=== PATIENT | male | born 1950 | race Caucasian/White ===

== ENCOUNTER 2020-06-13 15:39 | Inpatient (IN) | payer OTHER, BC ==
--- NOTE | 2020-06-13 15:52 | PDOC ---
Rapid Medical Evaluation Chief Complaint: Pain Medical Evaluation: Allergies Allergy/AdvReac Type Severity Reaction Status Date / Time No Known Allergies Allergy Verified 06/13/20 15:44 06/13/20 15:46 69 yo M h/o gastritis, DM on insulin c/o intermittent mid abdominal pain x 1 week with loss of appetite. patient is passing flatus, denies f/c/v/d, LBM 4 days ago. denies surgical history. PE: NAD speaking clearly A/P: abd pain labs, ua Discharge Disposition - Diagnosis Abdominal pain Qualifiers: Abdominal location: generalized Qualified Code(s): R10.84 - Generalized abdominal pain - Referrals - Patient Instructions - Post Discharge Activity
[2020-06-13] MEDS ORDERED: FAMOTIDINE 20 MG/50 ML IVPB 20 MG/50 ML MG IVPB ONE ×2 (16:37→16:45)
[2020-06-13] MEDS ORDERED: ACETAMINOPHEN 1000 MG/100 ML VIAL (NON FORMULARY) IVPB ONE (16:37)
[2020-06-13] MEDS ORDERED: SODIUM CHLORIDE 1,000 ML IV STA ×2 (16:38→20:02)
[2020-06-13] MEDS ORDERED: ACETAMINOPHEN INJECTION 100 ML IVPB ONE (16:45)
--- NOTE | 2020-06-13 17:15 | PDOC ---
History of Present Illness - General Chief Complaint: Pain Stated Complaint: ABD.PAIN Time Seen by Provider: 06/13/20 16:27 History Source: Patient, Family - History of Present Illness Timing/Duration: reports: constant Quality: reports: moderate Pain Radiation: reports: no radiation Past History - Medical History Allergies/Adverse Reactions: Allergies Allergy/AdvReac Type Severity Reaction Status Date / Time No Known Allergies Allergy Verified 06/13/20 15:44 Home Medications: Ambulatory Orders Glimepiride 4 mg PO 02/03/13 Glimepiride 4 mg PO DAILY #7 tablet 02/03/13 COPD: No Diabetes: Yes GI Disorders: Yes (DIVERTICULITIS) - Immunization History Immunization Up to Date: No - Psycho-Social/Smoking History Smoking Status: Yes Smoking History: Never smoked Number of Cigarettes Smoked Daily: 4 - Substance Abuse Hx (Audit-C & DAST Scrn) How often the patient has a drink containing alcohol: Never Score: In Men: 4 or > Positive; In Women: 3 or > Positive: 0 Screen Result (Pos requires Nsg. Audit-10AR): Negative Review of Systems - Review of Systems Constitutional: No: Chills, Fever Respiratory: No: Cough, Shortness of Breath Cardiac (ROS): No: Chest Pain ABD/GI: Yes: Constipated. No: Blood Streaked Bowels, Diarrhea, Nausea, Rectal Bleeding, Vomiting : No: Dysuria, Flank Pain, Hematuria *Physical Exam - Vital Signs Last Vital Signs Temp Pulse Resp BP Pulse Ox 98.7 F 85 18 137/74 98 06/13/20 15:44 06/13/20 15:44 06/13/20 15:44 06/13/20 15:44 06/13/20 15:44 - Physical Exam General Appearance: Yes: Appropriately Dressed. No: Apparent Distress HEENT: positive: Normal Voice, Other (? trace scleral icterus b/l) Neck: positive: Supple Respiratory/Chest: positive: Lungs Clear, Normal Breath Sounds. negative: Respiratory Distress Cardiovascular: positive: Regular Rate, S1, S2 Gastrointestinal/Abdominal: positive: Normal Bowel Sounds, Tender (sig ttp to epigastrium, NT to RUQ, no murpheys), Soft. negative: Distended, Guarding, Rebound Musculoskeletal: negative: CVA Tenderness Integumentary: positive: Dry, Warm Neurologic: positive: Fully Oriented, Alert, Normal Mood/Affect ED Treatment Course - LABORATORY CBC & Chemistry Diagram: 06/14/20 06:10 06/14/20 06:10 - Medications Given in the ED: ED Medications Discontinued Medications Generic Name Dose Route Start Last Admin Trade Name Mleinda PRN Reason Stop Dose Admin Acetaminophen 1,000 mg 06/13/20 16:37 06/13/20 16:55 Ofirmev Injection - IVPB 06/13/20 16:38 1,000 mg ONCE ONE Administration Famotidine/Sodium Chloride 20 mg in 50 mls @ 100 mls/hr 06/13/20 16:37 06/13/20 16:55 Pepcid 20 Mg Premixed Ivpb - IVPB 06/13/20 17:06 100 mls/hr ONCE ONE Administration Medical Decision Making - Medical Decision Making 06/13/20 17:11 69 yo M, h/o IDDM, diverticulosis, BIB daughter for ongoing epigastric pain x 1 week. Unable to describe pain but states it is severe and has been afraid to eat for the past week. Daughter says patient appears more lethargic and slow to respond now. Patient also reports constipation and has not moved his bowels in 2 days which is unusual for patient. No bright red blood per rectum, melena, dysuria, nausea, vomiting, fever or chills. Denies CP or SOB. No h/o similar pain see exam Upper abd pain ? gastritis/GERD vs bilary, less likely pancreatitis, uti/pyelo, r/o cardiac -ekg -labs -KUB given constipation -?US vs CT -GI cocktail -dispo pending 06/13/20 18:53 06/13/20 19:22 LFTs elevated, normal numbers in 2013 on records here. NA 126. Patient denies any alcohol intake but daughter told me, while alone with me, that patient does have a history of alcohol abuse and has been telling family that he currently does not drink anymore but daughter suspects that he still ingests ETOH. Patient's urine sample did appear dark in ED. Patient currently in CT. Signed out to KAYDEN Stark at this time Discharge - Discharge Information Problems reviewed: Yes Clinical Impression/Diagnosis: Transaminitis, Liver masses, Pulmonary nodule Abdominal pain Qualifiers: Abdominal location: generalized Qualified Code(s): R10.84 - Generalized abdominal pain - Follow up/Referral - Patient Discharge Instructions - Post Discharge Activity
[2020-06-13 17:25] LABS: BASO % 0.7 % (0-2.0); EOS % 0.4 % (0-4.5); HEMATOCRIT 35.2 % (35.4-49); HEMOGLOBIN 12.6 GM/dL (11.7-16.9); LYMPH % 12.3 % (8-40); MCHC 35.9 g/dl (32.0-35.9); MEAN CELL VOLUME 94.7 fl (80-96); MEAN PLT VOLUME 8.7 fl (7.5-11.1); MONO % 9.4 % (3.8-10.2); NEUT % 77.2 % (42.8-82.8); PLATELET COUNT 190 K/MM3 (134-434); RBC 3.72 M/mm3 (4.00-5.60)
--- NOTE | 2020-06-13 17:28 | CON.CARD ---
Consult Consult Specialty:: cardiology Reason for Consultation:: chest/abdominal pain; DM; cigarettes - History of Present Illness Chief Complaint: Pt A&Ox3; sitting in chair; c/o abdominal pain. His daughter, Katie, is with him. History of Present Illness: Mr. Gonzales is a 69 yr old man (b. [place]) with PMHx DM (on glucophage and insulin), current and long-term cigarettes (1/2-1 ppd for many years), HTN (?not on medications), chronic diverticulitis and distended gallblader ([address] CT), ? cholesterol levels, now brought to ER due to 1 week of substernal and abdominal pain that began about one week ago. Pt initially felt moderate central sternal burning pain up to his throat that began at rest and lasted for hours; for the last few days, it has been felt in his abdomen. He has had constipation for several days, as well as "dark urine"; decreased appetite, and weight loss, for several weeks. Pt's daughter says he has been extremely fatigued on minimal exertion for weeks, and "he just wants to lay down and sleep, like he is in slow-motion when talking, moving thinking". His appetite has diminished, and he has lost weight over the past few months, though he is unsure how much. He has been doing very little exercise for months. Denies family hx CAD/CVA. Denies alcohol. - History Source History Provided By: Patient, Family Member (daughter), Medical Record Limitations to Obtaining History: No Limitations - Past Medical History Cardio/Vascular: Yes: HTN - Smoking History Smoking history: Never smoked Aproximately how many cigarettes per day: 4 Home Medications - Allergies Allergies/Adverse Reactions: Allergies Allergy/AdvReac Type Severity Reaction Status Date / Time No Known Allergies Allergy Verified 06/13/20 15:44 - Home Medications Home Medications: Ambulatory Orders Glimepiride 4 mg PO 02/03/13 Glimepiride 4 mg PO DAILY #7 tablet 02/03/13 Review of Systems - Review of Systems Constitutional: reports: Unintentional Wgt. Loss, Weakness Eyes: reports: No Symptoms HENT: reports: No Symptoms Neck: reports: No Symptoms Cardiovascular: reports: Chest Pain Respiratory: reports: Exercise Intolerance Gastrointestinal: reports: Abdominal Pain Genitourinary: reports: Other (dark urine) Musculoskeletal: reports: Back Pain, Muscle Weakness Neurological: reports: Weakness Psychiatric: reports: Altered Sleep Pattern, Anxiety - Risk Factors Known Risk Factors: Yes: Age, Diabetes Mellitus, Gender, Hypertension, Physical Inactivity, Smoking Vital Signs: Vital Signs Temperature 98.7 F 06/13/20 15:44 Pulse Rate 85 06/13/20 15:44 Respiratory Rate 18 06/13/20 15:44 Blood Pressure 137/74 06/13/20 15:44 O2 Sat by Pulse Oximetry (%) 98 06/13/20 15:44 Constitutional: Yes: Anxious Eyes: Yes: WNL HENT: Yes: WNL Neck: Yes: WNL Respiratory: Yes: WNL Gastrointestinal: Yes: Soft, Other Renal/: No: Anuria Cardiovascular: Yes: Regular Rate and Rhythm JVD: No Carotid Bruit: No Heart Sounds: Yes: S1, S2 Murmur: Yes: Systolic Murmur, Grade 1 Musculoskeletal: Yes: Muscle Weakness Extremities: Yes: Cool Edema: No Peripheral Pulses WNL: Yes Integumentary: Yes: WNL Neurological: Yes: Alert, Oriented, Weakness Psychiatric: Yes: Alert, Oriented, Other (anxiety) - Other Data Echo: Pending Imaging - Results Chest X-ray: Image Reviewed EKG: Image Reviewed Assessment/Plan atypical chest pain abdominal pain constipation uncontrolled DM HTN cigarettes exertional fatigue "dark urine"; hyperbilirubinuria/emia hyponatremia Rec: COVID pending. Serial TNi and EKG F/u lipids, TSH, HGBA1c. Plan for ECHO (once COVID status known) for LVEF, wall motion and thickness; valve status. CXR: no acute pathology Glucose control IV fluids; f/u BUN/Cr, electrolytes, daily weight, Is and Os. F/u abdominal, GI/ evaluation; f/u CT abdomen Start lisinopril 2.5 mg daily (HTN; DM). F/u Na and K; replete as necessary; f/u with nephrology.
[2020-06-13 17:49] LABS: ALBUMIN 3.9 g/dl (3.4-5.0); ALK PHOS 162 U/L (45-117); ANION GAP 11 MMOL/L (8-16); BILIRUBIN,TOTAL 1.8 mg/dL (0.2-1); BLOOD UREA NITROGEN 13.5 mg/dL (7-18); CALCIUM 9.9 mg/dL (8.5-10.1); CHLORIDE 90 mmol/L (98-107); CO2 25 mmol/L (21-32); CREATININE 0.7 mg/dL (0.55-1.3); GLUCOSE,RANDOM 152 mg/dL (74-106); LIPASE 240 U/L (73-393); POTASSIUM 3.5 mmol/L (3.5-5.1); SGOT/AST 86 U/L (15-37); SGPT/ALT 124 U/L (13-61); SODIUM 126 mmol/L (136-145); TOT PROT 6.8 g/dl (6.4-8.2)
[2020-06-13] MEDS: LISINOPRIL 5 MG TABLET PO SCH (18:00)
[2020-06-13] MEDS ORDERED: LISINOPRIL 5 MG TABLET ONE (18:08)
[2020-06-13 19:08] LABS: PH,URINE 6.5 (5.0-8.0); URINE APPEARANCE CLEAR; URINE BILIRUBIN 1+ (NEGATIVE); URINE COLOR DK YELLOW; URINE GLUCOSE (UA) NEGATIVE (NEGATIVE); URINE KETONE TRACE (NEGATIVE); URINE LEUK ESTERASE NEGATIVE (NEGATIVE); URINE NITRITE NEGATIVE (NEGATIVE); URINE PROTEIN NEGATIVE (NEGATIVE); URINE UROBILINOGEN 4.0 E.U/dl mg/dL (0.2-1.0)
--- NOTE | 2020-06-13 19:35 | PDOC ---
*Physical Exam - Vital Signs Last Vital Signs Temp Pulse Resp BP Pulse Ox 98.7 F 85 18 137/74 98 06/13/20 15:44 06/13/20 15:44 06/13/20 15:44 06/13/20 15:44 06/13/20 15:44 ED Treatment Course - LABORATORY CBC & Chemistry Diagram: 06/13/20 16:50 06/13/20 16:50 - ADDITIONAL ORDERS Additional order review: Laboratory Results 06/13/20 06/13/20 18:00 16:50 Sodium 126 L Potassium 3.5 Chloride 90 L Carbon Dioxide 25 Anion Gap 11 BUN 13.5 Creatinine 0.7 Est GFR (CKD-EPI)AfAm 110.04 Est GFR (CKD-EPI)NonAf 94.95 Random Glucose 152 H Calcium 9.9 Total Bilirubin 1.8 H AST 86 H ALT 124 H Alkaline Phosphatase 162 H Total Protein 6.8 Albumin 3.9 Lipase 240 Urine Color Dk yellow Urine Appearance Clear Urine pH 6.5 Ur Specific [place] 1.024 Urine Protein Negative Urine Glucose (UA) Negative Urine Ketones Trace H Urine Blood Negative Urine Nitrite Negative Urine Bilirubin 1+ H Urine Urobilinogen 4.0 e.u/dl Ur Leukocyte Esterase Negative 06/13/20 16:50 RBC 3.72 L MCV 94.7 MCHC 35.9 RDW 13.0 MPV 8.7 D Neutrophils % 77.2 Lymphocytes % 12.3 D Monocytes % 9.4 D Eosinophils % 0.4 D Basophils % 0.7 D - Medications Given in the ED: ED Medications Discontinued Medications Generic Name Dose Route Start Last Admin Trade Name Freq PRN Reason Stop Dose Admin Acetaminophen 1,000 mg 06/13/20 16:37 06/13/20 16:55 Ofirmev Injection - IVPB 06/13/20 16:38 1,000 mg ONCE ONE Administration Famotidine/Sodium Chloride 20 mg in 50 mls @ 100 mls/hr 06/13/20 16:37 06/13/20 16:55 Pepcid 20 Mg Premixed Ivpb - IVPB 06/13/20 17:06 100 mls/hr ONCE ONE Administration Sodium Chloride 1,000 mls @ 1,000 mls/hr 06/13/20 16:38 06/13/20 16:55 Normal Saline - IV 06/13/20 17:37 1,000 mls/hr ASDIR STA Administration Medical Decision Making - Medical Decision Making 06/13/20 20:59 Liver mass is not shown in CT with pulmonary nodules. Concerning for metastatic disease. Abdominal ultrasound ordered to rule out acute cholecystitis Patient admitted under Dr. jordan service. Discharge - Discharge Information Problems reviewed: Yes Clinical Impression/Diagnosis: Transaminitis, Liver masses, Pulmonary nodule Abdominal pain Qualifiers: Abdominal location: generalized Qualified Code(s): R10.84 - Generalized abdominal pain - Follow up/Referral Referrals: Luis Angel Castillo MD [Primary Care Provider] - - Patient Discharge Instructions - Post Discharge Activity
--- OUTSIDE RECORDS SUMMARY | 2020-06-13 21:03 | XMS ---
:1950 Author Organization [facility] Support Name Relationship Address Phone RE, RETIRED Unavailable Unavailable Unavailable RE Unavailable Unavailable Unavailable JAGDEEP MIR [address] [facility] [phone] [place] [address] Re-disclosure Warning The records that you are about to access may contain information from federally- assisted alcohol or drug abuse programs. If such information is present, then the following federally mandated warning applies: This information has been disclosed to you from records protected by federal confidentiality rules (42 CFR part 2). The federal rules prohibit you from making any further disclosure of this information unless further disclosure is expressly permitted by the written consent of the person to whom it pertains or as otherwise permitted by 42 CFR part 2. A general authorization for the release of medical or other information is NOT sufficient for this purpose. The Federal rules restrict any use of the information to criminally investigate or prosecute any alcohol or drug abuse patient.The records that you are about to access may contain highly sensitive health information, the redisclosure of which is protected by Article 27-F of the [facility] Public Health law. If you continue you may haveaccess to information: Regarding HIV / AIDS; Provided by facilities licensed or operated by the [facility] Office of Mental Health; or Provided by the [facility] Office for People With Developmental Disabilities. If such information is present, then the following [facility] mandated warning applies: This information has been disclosed to you from confidential records which are protected by state law. State law prohibits you from making any further disclosure of this information without the specific written consent of the person to whom it pertains, or as otherwise permitted by law. Any unauthorized further disclosure in violation of state law may result in a fine or mcfp sentence or both. A general authorization for the release of medical or other information is NOT sufficient authorization for further disclosure. Insurance Providers Payer name Policy type Policy ID Covered Covered constitution party's Policy P derek / Coverage constitution party ID relationship to Song Inf ormation type song [facility] [id number] [place] [id number] MEDICARE [id number] SP [id number]
[2020-06-14] MEDS: DEXTROSE 5%-0.45% SALINE 1,000 ML IV SCH ×2 (00:13→22:03)
[2020-06-14 06:48] LABS: BASO % 0.9 % (0-2.0); EOS % 0.9 % (0-4.5); HEMOGLOBIN 11.9 GM/dL (11.7-16.9); LYMPH % 13.2 % (8-40); MCH 33.9 pg (25.7-33.7); MEAN PLT VOLUME 8.5 fl (7.5-11.1); MONO % 9.6 % (3.8-10.2); NEUT % 75.4 % (42.8-82.8); PLATELET COUNT 172 K/MM3 (134-434); RBC 3.51 M/mm3 (4.00-5.60); WHITE BLOOD COUNT 7.1 K/mm3 (4.0-10.0)
[2020-06-14 07:03] LABS: ALBUMIN 3.4 g/dl (3.4-5.0); BILIRUBIN,TOTAL 1.8 mg/dL (0.2-1); BLOOD UREA NITROGEN 7.4 mg/dL (7-18); CALCIUM 8.3 mg/dL (8.5-10.1); CREATININE 0.5 mg/dL (0.55-1.3); POTASSIUM 3.3 mmol/L (3.5-5.1); TOT PROT 6.2 g/dl (6.4-8.2)
[2020-06-14] MEDS: INSULIN SLIDING SCALE (NOVOLOG) 1 VIAL SQ SCH ×4 (07:06→22:03)
[2020-06-14] MEDS ORDERED: POTASSIUM CHLORIDE TABS 20 MEQ TABLET.ER (FP) PO ONE ×2 (09:44→10:04)
--- NOTE | 2020-06-14 09:59 | EKG ---
Test Reason : Blood Pressure : / mmHG Vent. Rate : 061 BPM Atrial Rate : 061 BPM P-R Int : 162 ms QRS Dur : 096 ms QT Int : 420 ms P-R-T Axes : 050 050 056 degrees QTc Int : 422 ms NORMAL SINUS RHYTHM NORMAL ECG WHEN COMPARED WITH ECG OF 15-SEP-2010 19:07, MINIMAL CRITERIA FOR INFERIOR INFARCT ARE NO LONGER PRESENT Confirmed by Hugo Lance ([id number]) on 06/14/2020 9:59:35 AM Referred By: Confirmed By:Hugo Lance
--- NOTE | 2020-06-14 09:59 | EKG ---
Test Reason : Blood Pressure : / mmHG Vent. Rate : 061 BPM Atrial Rate : 061 BPM P-R Int : 156 ms QRS Dur : 100 ms QT Int : 426 ms P-R-T Axes : 022 040 051 degrees QTc Int : 428 ms NORMAL SINUS RHYTHM NORMAL ECG WHEN COMPARED WITH ECG OF 13-JUN-2020 18:15, NO SIGNIFICANT CHANGE WAS FOUND Confirmed by Hugo Lance ([id number]) on 06/14/2020 9:59:22 AM Referred By: Confirmed By:Hugo Lance
[2020-06-14] MEDS ORDERED: LISINOPRIL 5 MG TABLET ONE (10:04)
[2020-06-14] MEDS ORDERED: HEPARIN NA (PORCINE) 5,000 UNITS/ML 1ML VIAL ONE (10:05)
[2020-06-14] MEDS: LISINOPRIL 5 MG TABLET PO SCH (10:16)
[2020-06-14] MEDS: HEPARIN NA (PORCINE) 5,000 UNITS/ML 1ML VIAL SQ SCH ×2 (10:16→22:03)
[2020-06-14 10:29] LABS: MAGNESIUM 1.3 mg/dL (1.8-2.4); N-TERMINAL BNP 227.4 pg/ml (5-125)
[2020-06-14] MEDS ORDERED: MAG HYDROX/AL HYDROX/SIMETH 30 ML UNIT-DOSE CUP ONE (12:51)
--- NOTE | 2020-06-14 14:08 | PN ---
Progress Note, Physician History of Present Illness: Mr. Gonzales is a 69 yr old man (b. [place]) with PMHx DM (on glucophage and insulin), current and long-term cigarettes (1/2-1 ppd for many years), HTN (?not on medications), chronic diverticulitis and distended gallblader (2013 CT), ? cholesterol levels, now brought to ER due to 1 week of substernal and abdominal pain that began about one week ago. Pt initially felt moderate central sternal burning pain up to his throat that began at rest and lasted for hours; for the last few days, it has been felt in his abdomen. He has had constipation for several days, as well as "dark urine"; decreased appetite, and weight loss, for several weeks. Pt's daughter says he has been extremely fatigued on minimal exertion for weeks, and "he just wants to lay down and sleep, like he is in slow-motion when talking, moving thinking". His appetite has diminished, and he has lost weight over the past few months, though he is unsure how much. He has been doing very little exercise for months. Denies family hx CAD/CVA. Denies alcohol. - Current Medication List Current Medications: Active Medications Heparin Sodium (Porcine) (Heparin -) 5,000 unit SQ BID [facility] Last Admin: 06/14/20 10:16 Dose: Not Given Documented by: Dextrose/Sodium Chloride (D5-1/2ns -) 1,000 mls @ 75 mls/hr IV ASDIR [facility] Last Admin: 06/14/20 00:13 Dose: 75 mls/hr Documented by: Insulin Aspart (Novolog Vial Sliding Scale -) 1 vial SQ ACHS [facility]; Protocol Last Admin: 06/14/20 12:48 Dose: Not Given Documented by: Lisinopril (Prinivil) 2.5 mg PO DAILY [facility] Last Admin: 06/14/20 10:16 Dose: 2.5 mg Documented by: - Objective Vital Signs: Vital Signs Temperature 97.0 F L 06/14/20 12:00 Pulse Rate 70 06/14/20 12:00 Respiratory Rate 18 06/14/20 08:43 Blood Pressure 126/66 06/14/20 12:00 O2 Sat by Pulse Oximetry (%) 96 06/14/20 12:00 Eyes: Yes: WNL, Conjunctiva Clear, EOM Intact HENT: Yes: WNL, Atraumatic, Normocephalic Neck: Yes: WNL, Supple, Trachea Midline Cardiovascular: Yes: WNL, Regular Rate and Rhythm Respiratory: Yes: WNL, Regular, CTA Bilaterally Gastrointestinal: Yes: WNL, Normal Bowel Sounds Genitourinary: Yes: WNL Musculoskeletal: Yes: WNL Extremities: Yes: WNL Edema: No Integumentary: Yes: WNL Neurological: Yes: WNL, Alert, Oriented ...Motor Strength: WNL Psychiatric: Yes: WNL Labs: CBC, BMP 06/14/20 06:10 06/14/20 06:10 Assessment/Plan atypical chest pain abdominal pain CT c/w metastatic lesions Liver / lung nodules. constipation uncontrolled DM HTN cigarettes exertional fatigue "dark urine"; hyperbilirubinuria/emia hyponatremia Rec: COVID pending. Serial TNi and EKG F/u lipids, TSH, HGBA1c. Plan for ECHO (once COVID status known) for LVEF, wall motion and thickness; valve status. CXR: no acute pathology Glucose control IV fluids; f/u BUN/Cr, electrolytes, daily weight, Is and Os. F/u abdominal, GI/ evaluation; f/u CT abdomen Start lisinopril 2.5 mg daily (HTN; DM). F/u Na and K; replete as necessary; f/u with nephrology.
[2020-06-14] MEDS ORDERED: MAG HYDROX/AL HYDROX/SIMETH 30 ML UNIT-DOSE CUP PO ONE (14:10)
--- NOTE | 2020-06-14 14:27 | CON.GI ---
Consult Consult Specialty:: gastroenterology Reason for Consultation:: abdominal pain - History of Present Illness Chief Complaint: epigastric pain History of Present Illness: pt seen and examined at bedside. Mr. Gonzales is a 69 yr old man with PMHx DM current and long-term cigarettes (1/2-1 ppd for many years), HTN , chronic diverticulitis and distended gallblader (2013 CT), ? cholesterol levels, brought to ER due to 1 week of substernal and abdominal pain that began about one week ago. He has had constipation for several days, reports having a large BM today. Reports h/o Nsaid use. Pt complaints of abdominal pain, reports poor apetite and has lost weight over the past few months. Denies diarhea, rectal bleeding, N/V, heartburn, regurgitation, dysphagia. Denies alcohol. - History Source History Provided By: Patient Limitations to Obtaining History: No Limitations - Past Medical History Cardio/Vascular: Yes: HTN - Smoking History Smoking history: Current every day smoker Aproximately how many cigarettes per day: 4 Home Medications - Allergies Allergies/Adverse Reactions: Allergies Allergy/AdvReac Type Severity Reaction Status Date / Time No Known Allergies Allergy Verified 06/13/20 15:44 - Home Medications Home Medications: Ambulatory Orders Glimepiride 4 mg PO 02/03/13 Glimepiride 4 mg PO DAILY #7 tablet 02/03/13 Review of Systems - Review of Systems Cardiovascular: reports: No Symptoms Respiratory: reports: No Symptoms Gastrointestinal: reports: Abdominal Pain (epigastric region). denies: Bloating, Constipation, Diarrhea, Dysphagia, Indigestion, Melena, Nausea, Rectal Bleeding, Vomiting, Vomiting Blood Physical Exam-GI Vital Signs: Vital Signs Temperature 97.0 F L 06/14/20 12:00 Pulse Rate 70 06/14/20 12:00 Respiratory Rate 18 06/14/20 08:43 Blood Pressure 126/66 06/14/20 12:00 O2 Sat by Pulse Oximetry (%) 96 06/14/20 12:00 Constitutional: Yes: Well Nourished, No Distress, Calm Eyes: Yes: Conjunctiva Clear, EOM Intact HENT: Yes: Atraumatic, Normocephalic Neck: Yes: Supple, Trachea Midline Cardiovascular: Yes: Regular Rate and Rhythm Respiratory: Yes: Regular, CTA Bilaterally Gastrointestinal Inspection: Yes: WNL ...Auscultate: Yes: Normoactive Bowel Sounds ...Palpate: Yes: Soft, Tenderness, Epigastium. 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 alpha fetoprotein CEA, Ca19-9, PSA, upper endoscopy to r/o gastric neoplasm Code(s): D37.6 - NEOPLASM OF UNCERTAIN BEHAVIOR OF LIVER, GB & BILE DUCT
--- NOTE | 2020-06-14 17:33 | HP ---
Admitting History and Physical - Primary Care Physician PCP: Nanci Peterson - Admission Chief Complaint: ABDOMINAL PAIN History of Present Illness: Mr. Gonzales is a 69 yr old man (b. [place]) with PMHx DM (on glucophage and insulin), current and long-term cigarettes (1/2-1 ppd for many years), HTN (?not on medications), chronic diverticulitis and distended gallblader (2013 CT), ? cholesterol levels, now brought to ER due to 1 week of substernal and abdominal pain that began about one week ago. Pt initially felt moderate central sternal burning pain up to his throat that began at rest and lasted for hours; for the last few days, it has been felt in his abdomen. He has had constipation for several days, as well as "dark urine"; decreased appetite, and weight loss, for several weeks. Pt's daughter says he has been extremely fatigued on minimal exertion for weeks, and "he just wants to lay down and sleep, like he is in slow-motion when talking, moving thinking". His appetite has diminished, and he has lost weight over the past few months, though he is unsure how much. He has been doing very little exercise for months. Denies family hx CAD/CVA. Denies alcohol. pcp Malia stoddard - - Past Medical History Cardiovascular: Yes: HTN Endocrine: Yes: Diabetes Mellitus - Smoking History Smoking history: Current every day smoker Aproximately how many cigarettes per day: 4 Home Medications - Allergies Allergies/Adverse Reactions: Allergies Allergy/AdvReac Type Severity Reaction Status Date / Time No Known Allergies Allergy Verified 06/13/20 15:44 - Home Medications Home Medications: Ambulatory Orders Glimepiride 4 mg PO 02/03/13 Glimepiride 4 mg PO DAILY #7 tablet 02/03/13 Review of Systems - Review of Systems Gastrointestinal: reports: Abdominal Pain Physical Examination Vital Signs: Vital Signs Temperature 97.0 F L 06/14/20 12:00 Pulse Rate 70 06/14/20 12:00 Respiratory Rate 18 06/14/20 08:43 Blood Pressure 126/66 06/14/20 12:00 O2 Sat by Pulse Oximetry (%) 96 06/14/20 12:00 Constitutional: Yes: No Distress Eyes: Yes: Conjunctiva Clear HENT: Yes: Atraumatic Neck: Yes: Supple Cardiovascular: Yes: Regular Rate and Rhythm Respiratory: Yes: CTA Bilaterally Gastrointestinal: Yes: Normal Bowel Sounds, Other (non tender) Extremities: Yes: WNL Neurological: Yes: Alert, Oriented Labs: CBC, BMP 06/14/20 06:10 06/14/20 06:10 Problem List - Problems (1) Abdominal pain Assessment/Plan: feeling better now non tender on exam ct findings note need oncology eval GI PPX Code(s): R10.9 - UNSPECIFIED ABDOMINAL PAIN Qualifiers: Abdominal location: generalized Qualified Code(s): R10.84 - Generalized abdominal pain (2) Liver masses Assessment/Plan: mri abdomen pending Code(s): R16.0 - HEPATOMEGALY, NOT ELSEWHERE CLASSIFIED (3) Transaminitis Assessment/Plan: monitor Code(s): R74.0 - NONSPEC ELEV OF LEVELS OF TRANSAMNS & LACTIC ACID DEHYDRGNSE (4) HTN (hypertension) Assessment/Plan: on meds monitor Code(s): I10 - ESSENTIAL (PRIMARY) HYPERTENSION (5) Diabetes Assessment/Plan: on insulin/bgms Code(s): E11.9 - TYPE 2 DIABETES MELLITUS WITHOUT COMPLICATIONS Assessment/Plan Laboratory Tests 06/13/20 06/13/20 06/13/20 06:50 16:50 16:50 WBC 8.0 RBC 3.72 L Hgb 12.6 Hct 35.2 L MCV 94.7 MCH 34.0 H MCHC 35.9 RDW 13.0 Plt Count 190 D MPV 8.7 D Absolute Neuts (auto) 6.2 Neutrophils % 77.2 Lymphocytes % 12.3 D Monocytes % 9.4 D Eosinophils % 0.4 D Basophils % 0.7 D Nucleated RBC % 0 Sodium 126 L Potassium 3.5 Chloride 90 L Carbon Dioxide 25 Anion Gap 11 BUN 13.5 Creatinine 0.7 Est GFR (CKD-EPI)AfAm 110.04 Est GFR (CKD-EPI)NonAf 94.95 POC Glucometer Random Glucose 152 H Hemoglobin A1c % Calcium 9.9 Magnesium Total Bilirubin 1.8 H AST 86 H ALT 124 H Alkaline Phosphatase 162 H Creatine Kinase 204 236 Creatine Kinase Index 3.1 3.0 CK-MB (CK-2) 6.4 H 7.3 H Troponin I 0.02 < 0.02 B-Natriuretic Peptide Total Protein 6.8 Albumin 3.9 Triglycerides Cholesterol Total LDL Cholesterol HDL Cholesterol Lipase 240 TSH Urine Color Urine Appearance Urine pH Ur Specific [place] Urine Protein Urine Glucose (UA) Urine Ketones Urine Blood Urine Nitrite Urine Bilirubin Urine Urobilinogen Ur Leukocyte Esterase 06/13/20 06/13/20 06/14/20 18:00 21:58 06:10 WBC 7.1 RBC 3.51 L Hgb 11.9 Hct 33.0 L MCV 94.0 MCH 33.9 H MCHC 36.0 H RDW 13.0 Plt Count 172 MPV 8.5 Absolute Neuts (auto) 5.4 Neutrophils % 75.4 Lymphocytes % 13.2 Monocytes % 9.6 Eosinophils % 0.9 D Basophils % 0.9 Nucleated RBC % 0 Sodium Potassium Chloride Carbon Dioxide Anion Gap BUN Creatinine Est GFR (CKD-EPI)AfAm Est GFR (CKD-EPI)NonAf POC Glucometer 136 Random Glucose Hemoglobin A1c % Calcium Magnesium Total Bilirubin AST ALT Alkaline Phosphatase Creatine Kinase Creatine Kinase Index CK-MB (CK-2) Troponin I B-Natriuretic Peptide Total Protein Albumin Triglycerides Cholesterol Total LDL Cholesterol HDL Cholesterol Lipase TSH Urine Color Dk yellow Urine Appearance Clear Urine pH 6.5 Ur Specific [place] 1.024 Urine Protein Negative Urine Glucose (UA) Negative Urine Ketones Trace H Urine Blood Negative Urine Nitrite Negative Urine Bilirubin 1+ H Urine Urobilinogen 4.0 e.u/dl Ur Leukocyte Esterase Negative 06/14/20 06/14/20 06/14/20 06:10 06:10 06:35 WBC RBC Hgb Hct MCV MCH MCHC RDW Plt Count MPV Absolute Neuts (auto) Neutrophils % Lymphocytes % Monocytes % Eosinophils % Basophils % Nucleated RBC % Sodium 125 L Potassium 3.3 L Chloride 90 L Carbon Dioxide 25 Anion Gap 11 BUN 7.4 Creatinine 0.5 L Est GFR (CKD-EPI)AfAm 126.36 Est GFR (CKD-EPI)NonAf 109.03 POC Glucometer 113 Random Glucose 115 H Hemoglobin A1c % 6.8 H Calcium 8.3 L Magnesium 1.3 L Total Bilirubin 1.8 H AST 78 H ALT 112 H Alkaline Phosphatase 144 H Creatine Kinase 206 Creatine Kinase Index 3.0 CK-MB (CK-2) 6.2 H Troponin I 0.02 B-Natriuretic Peptide 227.4 H Total Protein 6.2 L Albumin 3.4 Triglycerides 70 Cholesterol 134 Total LDL Cholesterol 64 HDL Cholesterol 55 Lipase TSH 0.37 Urine Color Urine Appearance Urine pH Ur Specific [place] Urine Protein Urine Glucose (UA) Urine Ketones Urine Blood Urine Nitrite Urine Bilirubin Urine Urobilinogen Ur Leukocyte Esterase 06/14/20 06/14/20 12:22 17:16 WBC RBC Hgb Hct MCV MCH MCHC RDW Plt Count MPV Absolute Neuts (auto) Neutrophils % Lymphocytes % Monocytes % Eosinophils % Basophils % Nucleated RBC % Sodium Potassium Chloride Carbon Dioxide Anion Gap BUN Creatinine Est GFR (CKD-EPI)AfAm Est GFR (CKD-EPI)NonAf POC Glucometer 143 168 Random Glucose Hemoglobin A1c % Calcium Magnesium Total Bilirubin AST ALT Alkaline Phosphatase Creatine Kinase Creatine Kinase Index CK-MB (CK-2) Troponin I B-Natriuretic Peptide Total Protein Albumin Triglycerides Cholesterol Total LDL Cholesterol HDL Cholesterol Lipase TSH Urine Color Urine Appearance Urine pH Ur Specific [place] Urine Protein Urine Glucose (UA) Urine Ketones Urine Blood Urine Nitrite Urine Bilirubin Urine Urobilinogen Ur Leukocyte Esterase Active Medications Generic Name Dose Route Start Last Admin Trade Name Freq PRN Reason Stop Dose Admin Heparin Sodium (Porcine) 5,000 unit 06/14/20 10:00 06/14/20 10:16 Heparin - SQ Not Given BID [facility] Dextrose/Sodium Chloride 1,000 mls @ 75 mls/hr 06/13/20 23:45 06/14/20 00:13 D5-1/2ns - IV 75 mls/hr ASDIR [facility] Administration Insulin Aspart 1 vial 06/14/20 07:00 06/14/20 17:32 Novolog Vial Sliding Scale - SQ 2 units ACHS [facility] Administration Protocol Lisinopril 2.5 mg 06/13/20 17:45 06/14/20 10:16 Prinivil PO 2.5 mg DAILY [facility] Administration Pantoprazole Sodium 40 mg 06/14/20 22:00 Protonix Iv IVPUSH BID [facility] COVERING DR PETERSON TODAY
[2020-06-14] MEDS ORDERED: PANTOPRAZOLE SODIUM 40 MG in SODIUM CHLORIDE 100 ML IVPB SCH (22:00)
[2020-06-14] MEDS: PANTOPRAZOLE SODIUM 40 MG VIAL IVPUSH SCH (22:03)
[2020-06-14 22:29] VITALS: BMI 22.1
[2020-06-15] MEDS: INSULIN SLIDING SCALE (NOVOLOG) 1 VIAL SQ SCH ×4 (06:31→21:00)
[2020-06-15] MEDS: LISINOPRIL 5 MG TABLET PO SCH (09:15)
[2020-06-15] MEDS: HEPARIN NA (PORCINE) 5,000 UNITS/ML 1ML VIAL SQ SCH ×2 (09:15→20:59)
[2020-06-15] MEDS: PANTOPRAZOLE SODIUM 40 MG VIAL IVPUSH SCH ×2 (09:15→21:00)
[2020-06-15] MEDS: DEXTROSE 5%-0.45% SALINE 1,000 ML IV SCH (09:15)
--- NOTE | 2020-06-15 10:54 | CONSULT ---
Consultation: REQUESTING PROVIDER: Dr. Peterson CONSULT REQUEST: We have been asked to medically evaluate this patient for Metastatic Disease. HISTORY OF PRESENT ILLNESS: 69 y/o M PMHx HTN, IDDM, Tobacco/EtOH use disorder, Chronic diverticulitis who presented to [facility] with one week of epigastric pain. Pain described as burning from his upper abdomen to his throat, accompanied by decreased PO intake from diminished appetite, weight loss and fatigue. Additionally complains of constipation but is passing flatus and having BMs. Daughter accompanied patient to the ED and mentions extensive hx of EtOH abuse. Lab findings revealed Transaminitis, CT A/P found extensive hepatic lesions suggestive of metastatic neoplastic disease, Upper abdominal lymphadenopathy, LLL Pulmonary nodules. GI was consulted and recommended MRCP which is pending read. Oncology was consulted for metastatic disease found on imaging. During my interview patient was ambulating without pain and was tolerating diet. Says his last colonoscopy was done one year ago and was normal. Denies any changes in stool color or melena. Denies any hematuria, hematochezia, hemoptysis. Denies any accompanying fevers, chills, chest pain, SOB, nausea, vomiting, diarrhea PMHx: As per HPI PSHx: Left Knee Social Hx: Daily Smoker, Daily EtOH use, Denies drug use FHx: Unknown as per patient REVIEW OF SYSTEMS: As per HPI PHYSICAL EXAMINATION Last Vital Signs Temp Pulse Resp BP Pulse Ox 98.0 F 79 18 142/72 96 06/15/20 10:00 06/15/20 10:00 06/15/20 10:00 06/15/20 10:00 06/15/20 10:00 GENERAL: A&Ox3, NAD HEAD: NCAT EYES: PERRL, EOMI EARS, NOSE, THROAT: Moist mucous membranes NECK: Supple. LUNGS: Diminished breath sounds at the bases, No wheezes, no crackles HEART: Regular rate and rhythm, normal S1 and S2 without murmur ABDOMEN: Soft, nontender, not distended, + bowel sounds, no guarding, no rebound MUSCULOSKELETAL: No CVA tenderness. EXTREMITIES: No edema. NEUROLOGICAL: Cranial nerves II-XII intact. Normal speech. SKIN: Warm, dry Laboratory Last Values WBC 7.1 K/mm3 (4.0-10.0) 06/14/20 06:10 RBC 3.51 M/mm3 (4.00-5.60) L 06/14/20 06:10 Hgb 11.9 GM/dL (11.7-16.9) 06/14/20 06:10 Hct 33.0 % (35.4-49) L 06/14/20 06:10 MCV 94.0 fl (80-96) 06/14/20 06:10 MCH 33.9 pg (25.7-33.7) H 06/14/20 06:10 MCHC 36.0 g/dl (32.0-35.9) H 06/14/20 06:10 RDW 13.0 % (11.9-15.9) 06/14/20 06:10 Plt Count 172 K/MM3 (134-434) 06/14/20 06:10 MPV 8.5 fl (7.5-11.1) 06/14/20 06:10 Absolute Neuts (auto) 5.4 K/mm3 (1.5-8.0) 06/14/20 06:10 Neutrophils % 75.4 % (42.8-82.8) 06/14/20 06:10 Lymphocytes % 13.2 % (8-40) 06/14/20 06:10 Monocytes % 9.6 % (3.8-10.2) 06/14/20 06:10 Eosinophils % 0.9 % (0-4.5) D 06/14/20 06:10 Basophils % 0.9 % (0-2.0) 06/14/20 06:10 Nucleated RBC % 0 % (0-0) 06/14/20 06:10 Sodium 125 mmol/L (136-145) L 06/14/20 06:10 Potassium 3.3 mmol/L (3.5-5.1) L 06/14/20 06:10 Chloride 90 mmol/L (98-107) L 06/14/20 06:10 Carbon Dioxide 25 mmol/L (21-32) 06/14/20 06:10 Anion Gap 11 MMOL/L (8-16) 06/14/20 06:10 BUN 7.4 mg/dL (7-18) 06/14/20 06:10 Creatinine 0.5 mg/dL (0.55-1.3) L 06/14/20 06:10 Est GFR (CKD-EPI)AfAm 126.36 06/14/20 06:10 Est GFR (CKD-EPI)NonAf 109.03 06/14/20 06:10 POC Glucometer 134 UNITS (80-120) 06/15/20 05:30 Random Glucose 115 mg/dL (74-106) H 06/14/20 06:10 Hemoglobin A1c % 6.8 % (4.2-6.3) H 06/14/20 06:10 Calcium 8.3 mg/dL (8.5-10.1) L 06/14/20 06:10 Magnesium 1.3 mg/dL (1.8-2.4) L 06/14/20 06:10 Total Bilirubin 1.8 mg/dL (0.2-1) H 06/14/20 06:10 AST 78 U/L (15-37) H 06/14/20 06:10 ALT 112 U/L (13-61) H 06/14/20 06:10 Alkaline Phosphatase 144 U/L (45-117) H 06/14/20 06:10 Creatine Kinase 206 U/L (26-308) 06/14/20 06:10 Creatine Kinase Index 3.0 % (0.0-5.0) 06/14/20 06:10 CK-MB (CK-2) 6.2 ng/mL (0.5-3.6) H 06/14/20 06:10 Troponin I 0.02 ng/ml (0.00-0.05) 06/14/20 06:10 B-Natriuretic Peptide 227.4 pg/ml (5-125) H 06/14/20 06:10 Total Protein 6.2 g/dl (6.4-8.2) L 06/14/20 06:10 Albumin 3.4 g/dl (3.4-5.0) 06/14/20 06:10 Triglycerides 70 mg/dL (0-150) 06/14/20 06:10 Cholesterol 134 mg/dL (50-200) 06/14/20 06:10 Total LDL Cholesterol 64 mg/dL (5-100) 06/14/20 06:10 HDL Cholesterol 55 mg/dL (40-60) 06/14/20 06:10 Lipase 240 U/L (73-393) 06/13/20 16:50 TSH 0.37 uIU/ml (0.358-3.74) 06/14/20 06:10 Urine Color Dk yellow 06/13/20 18:00 Urine Appearance Clear 06/13/20 18:00 Urine pH 6.5 (5.0-8.0) 06/13/20 18:00 Ur Specific [place] 1.024 (1.010-1.035) 06/13/20 18:00 Urine Protein Negative (NEGATIVE) 06/13/20 18:00 Urine Glucose (UA) Negative (NEGATIVE) 06/13/20 18:00 Urine Ketones Trace (NEGATIVE) H 06/13/20 18:00 Urine Blood Negative (NEGATIVE) 06/13/20 18:00 Urine Nitrite Negative (NEGATIVE) 06/13/20 18:00 Urine Bilirubin 1+ (NEGATIVE) H 06/13/20 18:00 Urine Urobilinogen 4.0 e.u/dl mg/dL (0.2-1.0) 06/13/20 18:00 Ur Leukocyte Esterase Negative (NEGATIVE) 06/13/20 18:00 Microbiology 06/13/20 18:00 Urine - Urine Clean Catch Urine Culture - Final NO GROWTH OBTAINED Active Medications Heparin Sodium (Porcine) (Heparin -) 5,000 unit SQ BID [facility] Last Admin: 06/15/20 09:15 Dose: 5,000 unit Documented by: Dextrose/Sodium Chloride (D5-1/2ns -) 1,000 mls @ 75 mls/hr IV ASDIR [facility] Last Admin: 06/15/20 09:15 Dose: 75 mls/hr Documented by: Insulin Aspart (Novolog Vial Sliding Scale -) 1 vial SQ ACHS [facility]; Protocol Last Admin: 06/15/20 06:31 Dose: Not Given Documented by: Lisinopril (Prinivil) 2.5 mg PO DAILY [facility] Last Admin: 06/15/20 09:15 Dose: 2.5 mg Documented by: Pantoprazole Sodium (Protonix Iv) 40 mg IVPUSH BID [facility] Last Admin: 06/15/20 09:15 Dose: 40 mg Documented by: ASSESSMENT/PLAN: 69 y/o M PMHx HTN, IDDM, Tobacco/EtOH use disorder, Chronic diverticulitis who presented to [facility] with one week of epigastric pain, found to have metastatic disease on imaging. #Metastatic Disease -Extensive hepatic lesions, Upper abdominal lymphadenopathy, LLL Pulmonary nodules on initial imaging; MRCP findings of left metastic lesions in the liver, T-L Spine and lymphadenopathy, -GI consult appreciated; Will discuss next steps including hida/EGD to r/o cholecystitis and Gastric neoplasm -Follow AFP, CEA, CA19-9, PSA -Liver bx -Analgesia Dispo: We will continue to follow the patient. Thank you for this consultative opportunity. Visit type - Medication Review Med list reviewed for High Risk Meds patients 65 and older: Yes - Emergency Visit Emergency Visit: Yes ED Registration Date: 06/13/20 Care time: The patient presented to the Emergency Department on the above date and was hospitalized for further evaluation of their emergent condition. - New Patient This patient is new to me today: No - Critical Care Critical Care patient: No ATTENDING PHYSICIAN STATEMENT I saw and evaluated the patient. I reviewed the resident's note and discussed the case with the resident. I agree with the resident's findings and plan as documented. SUBJECTIVE: OBJECTIVE: ASSESSMENT AND PLAN:
--- NOTE | 2020-06-15 11:06 | PN.GI ---
GI Progress Note Subjective: pt seen and examined at bedside. Reports having a BM today. Denies abdominal pain, diarhea, N/V. - Objective Vital Signs: Vital Signs Temperature 98.0 F 06/15/20 10:00 Pulse Rate 79 06/15/20 10:00 Respiratory Rate 18 06/15/20 10:00 Blood Pressure 142/72 06/15/20 10:00 O2 Sat by Pulse Oximetry (%) 96 06/15/20 10:00 Constitutional: Well Nourished, No Distress, Calm Eyes: Yes: Conjunctiva Clear, EOM Intact HENT: Yes: Atraumatic, Normocephalic Neck: Yes: WNL, Supple, Trachea Midline Cardiovascular: Yes: WNL, Regular Rate and Rhythm Respiratory: Yes: Regular, CTA Bilaterally Gastrointestinal Inspection: Yes: WNL ...Auscultate: Yes: Normoactive Bowel Sounds ...Palpate: Yes: Soft, Tenderness, Epigastium. No: Firm/Rigid, Guarding, Hepatomegaly, Mass, Pulsatile Mass, Splenomegaly, Tenderness Labs: CBC, BMP 06/14/20 06:10 06/14/20 06:10 Problem List - Problems (1) Epigastric abdominal pain Assessment/Plan: epigastric pain r/o PUD versus CBD stone versus cholecystitis versus r/o gastric mass plan discussed with Dr Branham R> EGD- pending covid results , MRI-MRCP - results pending. 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 alpha fetoprotein CEA, Ca19-9, PSA, upper endoscopy to r/o gastric neoplasm Code(s): D37.6 - NEOPLASM OF UNCERTAIN BEHAVIOR OF LIVER, GB & BILE DUCT
--- NOTE | 2020-06-15 14:23 | PN ---
Progress Note, Physician Chief Complaint: PT A&Ox3; no chest pain or dysnea; + mild abdominal discomfort. He says "things have spread" in his body; he is praying he does not have cancer. Pt's came to visit. History of Present Illness: Mr. Gonzales is a 69 yr old man (b. [place]) with PMHx DM (on glucophage and insulin), current and long-term cigarettes (1/2-1 ppd for many years), HTN (?not on medications), chronic diverticulitis and distended gallblader (2013 CT), ? cholesterol levels, now brought to ER due to 1 week of substernal and abdominal pain that began about one week ago. Pt initially felt moderate central sternal burning pain up to his throat that began at rest and lasted for hours; for the l ast few days, it has been felt in his abdomen. He has had constipation for several days, as well as "dark urine"; decreased appetite, and weight loss, for several weeks. Pt's daughter says he has been extremely fatigued on minimal exertion for weeks, and "he just wants to lay down and sleep, like he is in slow-motion when talking, moving thinking". His appetite has diminished, and he has lost weight over the past few months, though he is unsure how much. He has been doing very little exercise for months. Denies family hx CAD/CVA. Denies alcohol. - Current Medication List Current Medications: Active Medications Heparin Sodium (Porcine) (Heparin -) 5,000 unit SQ BID [facility] Last Admin: 06/15/20 09:15 Dose: 5,000 unit Documented by: Sodium Chloride (Normal Saline -) 1,000 mls @ 200 mls/hr IV ASDIR [facility] Stop: 06/17/20 17:29 Insulin Aspart (Novolog Vial Sliding Scale -) 1 vial SQ ACHS [facility]; Protocol Last Admin: 06/15/20 11:39 Dose: 2 units Documented by: Lisinopril (Prinivil) 2.5 mg PO DAILY [facility] Last Admin: 06/15/20 09:15 Dose: 2.5 mg Documented by: Pantoprazole Sodium (Protonix Iv) 40 mg IVPUSH BID [facility] Last Admin: 06/15/20 09:15 Dose: 40 mg Documented by: - Objective Vital Signs: Vital Signs Temperature 98.7 F 06/15/20 13:50 Pulse Rate 66 06/15/20 13:50 Respiratory Rate 18 06/15/20 13:50 Blood Pressure 137/70 06/15/20 13:50 O2 Sat by Pulse Oximetry (%) 96 06/15/20 10:00 Constitutional: Yes: Calm Eyes: Yes: WNL HENT: Yes: WNL Neck: Yes: WNL Cardiovascular: Yes: Regular Rate and Rhythm Respiratory: Yes: Regular, Diminished Gastrointestinal: Yes: Soft. No: Tenderness ...Rectal Exam: Yes: Deferred Genitourinary: No: Anuria Musculoskeletal: Yes: Muscle Weakness Extremities: Yes: Cool Edema: No Peripheral Pulses WNL: Yes Integumentary: Yes: WNL Neurological: Yes: Alert, Oriented, Weakness Psychiatric: Yes: Alert, Oriented, Other (anxiety) Labs: CBC, BMP 06/14/20 06:10 06/14/20 06:10 Abnormal Lab Results 06/15/20 06/15/20 15:30 15:30 RBC 3.37 L Hgb 11.3 L Hct 32.3 L Monocytes % 11.5 H Sodium 124 L Chloride 88 L Random Glucose 167 H Magnesium 1.6 L Total Bilirubin 2.1 H AST 105 H ALT 138 H Alkaline Phosphatase 161 H Total Protein 6.2 L - ....Imaging Chest X-ray: Image Reviewed MRI: Pending EKG: Image Reviewed Assessment/Plan GI: ?metastatic disease of the liver; ? lung as primary focus constipation uncontrolled DM HTN cigarettes exertional fatigue "dark urine"; hyperbilirubinuria/emia hyponatremia; hypokalemia; hypomagnesemia; anemia Rec: COVID not detected. Abdominal MRI results pending. TNI < 0.02 x 3; BNP 224. repeat labs, and replete electrolytes if necessary. LDL cholesterol 64; TSH WNL; elevated HGBA1c (6.8). Plan for ECHO (once COVID status known) for LVEF, wall motion and thickness; valve status. CXR: no acute pathology; CTA noted pulmonary nodules. Glucose control IV fluids; f/u BUN/Cr, electrolytes, daily weight, Is and Os. F/u abdominal, GI/ evaluation; f/u CT abdomen Started lisinopril 2.5 mg daily (HTN; DM). F/u Na and K; replete as necessary; f/u with nephrology.
[2020-06-15 16:27] LABS: BASO % 0.5 % (0-2.0); EOS % 0.7 % (0-4.5); HEMATOCRIT 32.3 % (35.4-49); HEMOGLOBIN 11.3 GM/dL (11.7-16.9); MCH 33.5 pg (25.7-33.7); MEAN CELL VOLUME 95.7 fl (80-96); MONO % 11.5 % (3.8-10.2); NEUT % 75.3 % (42.8-82.8); PLATELET COUNT 170 K/MM3 (134-434); RBC 3.37 M/mm3 (4.00-5.60); WHITE BLOOD COUNT 6.8 K/mm3 (4.0-10.0)
[2020-06-15] MEDS: SODIUM CHLORIDE 1,000 ML IV SCH ×2 (16:47→23:36)
[2020-06-15 17:17] LABS: ALBUMIN 3.4 g/dl (3.4-5.0); BILIRUBIN,TOTAL 2.1 mg/dL (0.2-1); BLOOD UREA NITROGEN 9.3 mg/dL (7-18); CALCIUM 8.5 mg/dL (8.5-10.1); CREATININE 0.6 mg/dL (0.55-1.3); MAGNESIUM 1.6 mg/dL (1.8-2.4); POTASSIUM 3.6 mmol/L (3.5-5.1); TOT PROT 6.2 g/dl (6.4-8.2)
--- NOTE | 2020-06-15 17:19 | PN ---
Teaching Attending Note Name of Resident: Stephanie Allen ATTENDING PHYSICIAN STATEMENT I saw and evaluated the patient. I reviewed the resident's note and discussed the case with the resident. I agree with the resident's findings and plan as documented. 69M with IDDM, active smoker presents for 1 week of abd pain, anorexia, constipation and weight loss. Ct abd/pelvis concerning for extensive hepatic lesions and upper abd LAD as well as left lower lobe pulm nodules. Also noted to have diffuse gallbladder wall thickening with some amount of pericholecystic soft tissue stranding (cant rule out acute cholecystitis) which was confirmed on AB US. ABD MRI pending read. Patient will need biopsy of liver mass and would also recommend CT chest with contrast to complete staging. GI following for possible EGD to r/o UGI mass. Agree with CEA, Ca19-9 and AFP for tumor markers.
[2020-06-15] MEDS ORDERED: MAGNESIUM SULFATE IN WATER 2 GM/50 ML IVPB IVPB ONE (17:45)
[2020-06-15] MEDS ORDERED: INSULIN (NOVOLOG) ASPART 100 UNITS/ML 10ML VIAL ONE (20:49)
--- NOTE | 2020-06-15 21:42 | PN ---
Progress Note, Physician - Current Medication List Current Medications: Active Medications Heparin Sodium (Porcine) (Heparin -) 5,000 unit SQ BID [facility] Last Admin: 06/15/20 20:59 Dose: Not Given Documented by: Sodium Chloride (Normal Saline -) 1,000 mls @ 200 mls/hr IV ASDIR [facility] Stop: 06/17/20 17:29 Last Admin: 06/15/20 16:47 Dose: 200 mls/hr Documented by: Insulin Aspart (Novolog Vial Sliding Scale -) 1 vial SQ ACHS [facility]; Protocol Last Admin: 06/15/20 21:00 Dose: 4 units Documented by: Lisinopril (Prinivil) 2.5 mg PO DAILY [facility] Last Admin: 06/15/20 09:15 Dose: 2.5 mg Documented by: Pantoprazole Sodium (Protonix Iv) 40 mg IVPUSH BID [facility] Last Admin: 06/15/20 21:00 Dose: 40 mg Documented by: - Objective Vital Signs: Vital Signs Temperature 98.3 F 06/15/20 20:59 Pulse Rate 67 06/15/20 20:59 Respiratory Rate 18 06/15/20 20:59 Blood Pressure 134/71 06/15/20 20:59 O2 Sat by Pulse Oximetry (%) 98 06/15/20 20:59 Labs: CBC, BMP 06/15/20 15:30 06/15/20 15:30
[2020-06-16] MEDS: SODIUM CHLORIDE 1,000 ML IV SCH (03:38)
[2020-06-16] MEDS ORDERED: MORPHINE SULFATE 2 MG/ML VIAL IVPUSH ONE (04:30)
[2020-06-16] MEDS: INSULIN SLIDING SCALE (NOVOLOG) 1 VIAL SQ SCH ×4 (06:02→22:47)
--- NOTE | 2020-06-16 08:33 | PN ---
Progress Note, Physician History of Present Illness: Mr. Gonzales is a 69 yr old man (b. [place]) with PMHx DM (on glucophage and insulin), current and long-term cigarettes (1/2-1 ppd for many years), HTN (?not on medications), chronic diverticulitis and distended gallblader (2013 CT), ? cholesterol levels, now brought to ER due to 1 week of substernal and abdominal pain that began about one week ago. Pt initially felt moderate central sternal burning pain up to his throat that began at rest and lasted for hours; for the last few days, it has been felt in his abdomen. He has had constipation for several days, as well as "dark urine"; decreased appetite, and weight loss, for several weeks. Pt's daughter says he has been extremely fatigued on minimal exertion for weeks, and "he just wants to lay down and sleep, like he is in slow-motion when talking, moving thinking". His appetite has diminished, and he has lost weight over the past few months, though he is unsure how much. He has been doing very little exercise for months. Denies family hx CAD/CVA. Denies alcohol. - Current Medication List Current Medications: Active Medications Heparin Sodium (Porcine) (Heparin -) 5,000 unit SQ BID [facility] Last Admin: 06/15/20 20:59 Dose: Not Given Documented by: Sodium Chloride (Normal Saline -) 1,000 mls @ 200 mls/hr IV ASDIR [facility] Stop: 06/17/20 17:29 Last Admin: 06/16/20 03:38 Dose: 200 mls/hr Documented by: Insulin Aspart (Novolog Vial Sliding Scale -) 1 vial SQ ACHS [facility]; Protocol Last Admin: 06/16/20 06:02 Dose: Not Given Documented by: Lisinopril (Prinivil) 2.5 mg PO DAILY [facility] Last Admin: 06/15/20 09:15 Dose: 2.5 mg Documented by: Pantoprazole Sodium (Protonix Iv) 40 mg IVPUSH BID [facility] Last Admin: 06/15/20 21:00 Dose: 40 mg Documented by: - Objective Vital Signs: Vital Signs Temperature 99.0 F 06/16/20 06:00 Pulse Rate 63 06/16/20 06:00 Respiratory Rate 18 06/16/20 06:00 Blood Pressure 126/72 06/16/20 06:00 O2 Sat by Pulse Oximetry (%) 96 06/16/20 06:00 Constitutional: Yes: Cachectic HENT: Yes: WNL, Atraumatic, Normocephalic Neck: Yes: WNL, Supple, Trachea Midline Cardiovascular: Yes: WNL, Regular Rate and Rhythm Respiratory: Yes: WNL, Regular, CTA Bilaterally Gastrointestinal: Yes: WNL, Normal Bowel Sounds Genitourinary: Yes: WNL Musculoskeletal: Yes: WNL Extremities: Yes: WNL Edema: No Integumentary: Yes: WNL Neurological: Yes: WNL, Alert, Oriented ...Motor Strength: WNL Psychiatric: Yes: WNL Labs: CBC, BMP 06/15/20 15:30 06/15/20 15:30 Assessment/Plan GI: ?metastatic disease of the liver; ? lung as primary focus constipation uncontrolled DM HTN cigarettes exertional fatigue "dark urine"; hyperbilirubinuria/emia hyponatremia; hypokalemia; hypomagnesemia; anemia Rec: COVID not detected. Abdominal MRI results pending. TNI < 0.02 x 3; BNP 224. repeat labs, and replete electrolytes if necessary. LDL cholesterol 64; TSH WNL; elevated HGBA1c (6.8). Plan for ECHO (once COVID status known) for LVEF, wall motion and thickness; valve status. CXR: no acute pathology; CTA noted pulmonary nodules. Glucose control IV fluids; f/u BUN/Cr, electrolytes, daily weight, Is and Os. F/u abdominal, GI/ evaluation; f/u CT abdomen Started lisinopril 2.5 mg daily (HTN; DM). F/u Na and K; replete as necessary; f/u with nephrology.
[2020-06-16] MEDS: LISINOPRIL 5 MG TABLET PO SCH (09:25)
[2020-06-16] MEDS: HEPARIN NA (PORCINE) 5,000 UNITS/ML 1ML VIAL SQ SCH ×2 (09:25→22:48)
[2020-06-16] MEDS: PANTOPRAZOLE SODIUM 40 MG VIAL IVPUSH SCH ×2 (09:25→22:49)
--- NOTE | 2020-06-16 10:39 | CONSULT ---
Consult Consult Specialty:: Surgery Reason for Consultation:: cholelithiasis - History of Present Illness Chief Complaint: abdominal pain History of Present Illness: 69 y .o.male admitted for abdominal pain Imaging studies show multiple liver lesions suspicious for metastatic cancer and cholelithiasis - History Source History Provided By: Patient - Past Medical History Cardio/Vascular: Yes: HTN Endocrine: Yes: Diabetes Mellitus - Smoking History Smoking history: Current every day smoker Have you smoked in the past 12 months: Yes Aproximately how many cigarettes per day: 10 Home Medications - Allergies Allergies/Adverse Reactions: Allergies Allergy/AdvReac Type Severity Reaction Status Date / Time No Known Allergies Allergy Verified 06/13/20 15:44 - Home Medications Home Medications: Ambulatory Orders Glimepiride 4 mg PO 02/03/13 Glimepiride 4 mg PO DAILY #7 tablet 02/03/13 Physical Exam Vital Signs: Vital Signs Temperature 98.9 F 06/16/20 09:44 Pulse Rate 63 06/16/20 09:44 Respiratory Rate 18 06/16/20 09:44 Blood Pressure 120/66 06/16/20 09:44 O2 Sat by Pulse Oximetry (%) 96 06/16/20 09:44 Eyes: Yes: Sclera Icterus (mild) Cardiovascular: Yes: Regular Rate and Rhythm Respiratory: Yes: CTA Bilaterally Gastrointestinal: Yes: Soft, Tenderness (none) ...Rectal Exam: Yes: Deferred Musculoskeletal: Yes: Back Pain Integumentary: Yes: WNL Neurological: Yes: Alert, Oriented Labs: CBC, BMP 06/15/20 15:30 06/15/20 15:30 Imaging - Results Cat Scan: Report Reviewed, Image Reviewed Ultrasound: Report Reviewed, Image Reviewed MRI: Report Reviewed, Image Reviewed Problem List - Problems (1) Abdominal pain Assessment/Plan: metastatic liver lesions asymptomatic cholelithiasis - GB ca? GI w/u prognosis guarded Code(s): R10.9 - UNSPECIFIED ABDOMINAL PAIN Qualifiers: Abdominal location: generalized Qualified Code(s): R10.84 - Generalized abdominal pain
--- NOTE | 2020-06-16 13:40 | ECHO ---
Version: 1 Name: RICHARD MIR Exam: Adult Echocardiogram Study Date: 06/16/2020, 12:37 PM Age: 69 Years MMode/2D Measurements & Calculations IVSd: 0.82 cm LVIDs: 2.8 cm LVIDd: 4.2 cm LVPWd: 1.20 cm LAV (MOD-bp): 84.0 ml ACS: 1.69 cm Ao root diam: 2.8 cm LVOT diam: 2.17 cm LA dimension: 3.3 cm Doppler Measurements & Calculations MV E max lio: 90.3 cm/sec Med E/e': 14.5 MV A max lio: 102.7 cm/sec Med Peak E' Lio: 6.3 cm/sec MV E/A: 0.88 Lat E/e': 11.3 Lat Peak E' Lio: 8.0 cm/sec Ao max P.1 mmHg Ao V2 max: 150.0 cm/sec Left Ventricle Left ventricular systolic function is normal. Ejection Fraction = 55-60%. The transmitral spectral D oppler flow pattern is suggestive of impaired LV relaxation. Right Ventricle The right ventricle is normal in size and function. Atria The left atrium is borderline dilated. Right atrial size is normal. Mitral Valve The mitral valve is normal in structure and function. There is no mitral valve stenosis. There is tr annie mitral regurgitation. Tricuspid Valve The tricuspid valve is normal in structure and function. There is trace tricuspid regurgitation. The re was insufficient TR detected to calculate RV systolic pressure. Aortic Valve The aortic valve is trileaflet. No hemodynamically significant valvular aortic stenosis. No aortic regurgitation is present. Pulmonic Valve The pulmonic valve is not well seen, but is grossly normal. There is no pulmonic valvular stenosis. Trace pulmonic valvular regurgitation. Great Vessels The aortic root is normal size. Pericardium/Pleura There is no pericardial effusion. Summary Statements Left ventricular systolic function is normal. Ejection Fraction = 55-60%. The transmitral spectral Doppler flow pattern is suggestive of impaired LV relaxation. The right ventricle is normal in size and function. There is trace mitral regurgitation. There is trace tricuspid regurgitation. No hemodynamically significant valvular aortic stenosis. There is no pericardial effusion. MD Bajwa *Armando 06/16/2020, 1:39 PM Ordering Physician: Filiberto Vincent Referring Physician: FILIBERTO VINCENT Performed By: Lizzie Aviles
--- NOTE | 2020-06-16 13:47 | PN ---
Progress Note (short form) - Note Progress Note: MRI reviewed will need pulmonaty consult regarfing neoplasm of the lung GI work up on hold
--- NOTE | 2020-06-16 15:43 | PN ---
Progress Note, Physician History of Present Illness: no complaints - Current Medication List Current Medications: Active Medications Heparin Sodium (Porcine) (Heparin -) 5,000 unit SQ BID [facility] Last Admin: 06/16/20 09:25 Dose: 5,000 unit Documented by: Sodium Chloride (Normal Saline -) 1,000 mls @ 200 mls/hr IV ASDIR [facility] Stop: 06/17/20 17:29 Last Admin: 06/16/20 03:38 Dose: 200 mls/hr Documented by: Insulin Aspart (Novolog Vial Sliding Scale -) 1 vial SQ ACHS [facility]; Protocol Last Admin: 06/16/20 10:36 Dose: Not Given Documented by: Lisinopril (Prinivil) 2.5 mg PO DAILY [facility] Last Admin: 06/16/20 09:25 Dose: 2.5 mg Documented by: Pantoprazole Sodium (Protonix Iv) 40 mg IVPUSH BID [facility] Last Admin: 06/16/20 09:25 Dose: 40 mg Documented by: - Objective Vital Signs: Vital Signs Temperature 98.2 F 06/16/20 13:58 Pulse Rate 59 L 06/16/20 13:58 Respiratory Rate 18 06/16/20 13:58 Blood Pressure 134/57 L 06/16/20 13:58 O2 Sat by Pulse Oximetry (%) 96 06/16/20 09:44 Constitutional: Yes: No Distress HENT: Yes: Atraumatic Neck: Yes: Supple Cardiovascular: Yes: Regular Rate and Rhythm Respiratory: Yes: CTA Bilaterally Gastrointestinal: Yes: Normal Bowel Sounds Extremities: Yes: WNL Edema: No Neurological: Yes: Alert, Oriented Labs: CBC, BMP 06/15/20 15:30 06/15/20 15:30 Problem List - Problems (1) Abdominal pain Assessment/Plan: resolved Code(s): R10.9 - UNSPECIFIED ABDOMINAL PAIN Qualifiers: Abdominal location: generalized Qualified Code(s): R10.84 - Generalized abdominal pain (2) Liver masses Assessment/Plan: mri abdomen Code(s): R16.0 - HEPATOMEGALY, NOT ELSEWHERE CLASSIFIED (3) Transaminitis Assessment/Plan: monitor Code(s): R74.0 - NONSPEC ELEV OF LEVELS OF TRANSAMNS & LACTIC ACID DEHYDRGNSE (4) HTN (hypertension) Assessment/Plan: on meds monitor Code(s): I10 - ESSENTIAL (PRIMARY) HYPERTENSION (5) Diabetes Assessment/Plan: on insulin/bgms Code(s): E11.9 - TYPE 2 DIABETES MELLITUS WITHOUT COMPLICATIONS Assessment/Plan COVERING DR PERALTA TODAY
[2020-06-16] MEDS ORDERED: INSULIN (NOVOLOG) ASPART 100 UNITS/ML 10ML VIAL ONE ×2 (16:19→22:10)
[2020-06-16] MEDS ORDERED: MELATONIN 5 MG TABLETS PO ONE (22:11)
[2020-06-17] MEDS: INSULIN SLIDING SCALE (NOVOLOG) 1 VIAL SQ SCH ×4 (06:33→21:30)
[2020-06-17] MEDS ORDERED: ACETAMINOPHEN 325 MG TABLET (FP) PO ONE (08:15)
[2020-06-17 09:06] LABS: HEMOGLOBIN 12.2 GM/dL (11.7-16.9); MCH 33.9 pg (25.7-33.7); MCHC 35.8 g/dl (32.0-35.9); MEAN CELL VOLUME 94.6 fl (80-96); MEAN PLT VOLUME 8.8 fl (7.5-11.1); PLATELET COUNT 159 K/MM3 (134-434); RDW 12.7 % (11.9-15.9); WHITE BLOOD COUNT 7.1 K/mm3 (4.0-10.0)
[2020-06-17 09:39] LABS: POTASSIUM 3.6 mmol/L (3.5-5.1)
[2020-06-17] MEDS: HEPARIN NA (PORCINE) 5,000 UNITS/ML 1ML VIAL SQ SCH ×2 (09:57→21:28)
[2020-06-17] MEDS: PANTOPRAZOLE SODIUM 40 MG VIAL IVPUSH SCH ×2 (09:57→21:29)
[2020-06-17] MEDS: LISINOPRIL 5 MG TABLET PO SCH (09:58)
[2020-06-17 10:04] LABS: ALBUMIN 3.4 g/dl (3.4-5.0); BILIRUBIN,TOTAL 2.9 mg/dL (0.2-1); BLOOD UREA NITROGEN 6.9 mg/dL (7-18); CALCIUM 8.7 mg/dL (8.5-10.1); CREATININE 0.6 mg/dL (0.55-1.3); TOT PROT 6.2 g/dl (6.4-8.2)
--- NOTE | 2020-06-17 10:38 | PN ---
Progress Note (short form) - Note Progress Note: PULMONARY CONSULTATION DICTATED 06/17/20 IMP LIKELY LUNG CA WITH LIVER METS LLL MASS WITH MEDIASTINAL ADENOPATHY HTN DM TOBACCO ABUSE ABDOMINAL PAIN ANEMIA ABNORMAL LFTS HYPONATREMIA PLAN O2 NEEDED CHEST CT IR EVALUATION FOR TISSUE DX ANALGESICS MONITOR LYTES,NA,H+H TREND LFTS URINE LYTES CONSIDER RENAL EVALUATION DR HU Problem List - Problems (1) Lung mass Code(s): R91.8 - OTHER NONSPECIFIC ABNORMAL FINDING OF LUNG FIELD (2) Abdominal pain Code(s): R10.9 - UNSPECIFIED ABDOMINAL PAIN Qualifiers: Abdominal location: generalized Qualified Code(s): R10.84 - Generalized abdominal pain (3) Diabetes Code(s): E11.9 - TYPE 2 DIABETES MELLITUS WITHOUT COMPLICATIONS (4) HTN (hypertension) Code(s): I10 - ESSENTIAL (PRIMARY) HYPERTENSION (5) Liver masses Code(s): R16.0 - HEPATOMEGALY, NOT ELSEWHERE CLASSIFIED (6) Hyponatremia Code(s): E87.1 - HYPO-OSMOLALITY AND HYPONATREMIA
--- NOTE | 2020-06-17 11:36 | PN ---
Progress Note, Physician History of Present Illness: Mr. Gonzales is a 69 yr old man (b. [place]) with PMHx DM (on glucophage and insulin), current and long-term cigarettes (1/2-1 ppd for many years), HTN (?not on medications), chronic diverticulitis and distended gallblader (2013 CT), ? cholesterol levels, now brought to ER due to 1 week of substernal and abdominal pain that began about one week ago. Pt initially felt moderate central sternal burning pain up to his throat that began at rest and lasted for hours; for the last few days, it has been felt in his abdomen. He has had constipation for several days, as well as "dark urine"; decreased appetite, and weight loss, for several weeks. Pt's daughter says he has been extremely fatigued on minimal exertion for weeks, and "he just wants to lay down and sleep, like he is in slow-motion when talking, moving thinking". His appetite has diminished, and he has lost weight over the past few months, though he is unsure how much. He has been doing very little exercise for months. Denies family hx CAD/CVA. Denies alcohol. - Current Medication List Current Medications: Active Medications Heparin Sodium (Porcine) (Heparin -) 5,000 unit SQ BID [facility] Last Admin: 06/17/20 09:57 Dose: 5,000 unit Documented by: Sodium Chloride (Normal Saline -) 1,000 mls @ 200 mls/hr IV ASDIR [facility] Stop: 06/17/20 17:29 Last Admin: 06/16/20 03:38 Dose: 200 mls/hr Documented by: Insulin Aspart (Novolog Vial Sliding Scale -) 1 vial SQ ACHS [facility]; Protocol Last Admin: 06/17/20 06:33 Dose: Not Given Documented by: Lisinopril (Prinivil) 2.5 mg PO DAILY [facility] Last Admin: 06/17/20 09:58 Dose: 2.5 mg Documented by: Pantoprazole Sodium (Protonix Iv) 40 mg IVPUSH BID [facility] Last Admin: 06/17/20 09:57 Dose: 40 mg Documented by: - Objective Vital Signs: Vital Signs Temperature 98.8 F 06/17/20 08:45 Pulse Rate 62 06/17/20 08:45 Respiratory Rate 18 06/17/20 08:45 Blood Pressure 130/62 06/17/20 08:45 O2 Sat by Pulse Oximetry (%) 95 06/17/20 08:45 Eyes: Yes: WNL, Conjunctiva Clear, EOM Intact HENT: Yes: WNL, Atraumatic, Normocephalic Neck: Yes: WNL, Supple, Trachea Midline Cardiovascular: Yes: WNL, Regular Rate and Rhythm Respiratory: Yes: WNL, Regular, CTA Bilaterally Gastrointestinal: Yes: WNL, Normal Bowel Sounds Genitourinary: Yes: WNL Musculoskeletal: Yes: WNL Extremities: Yes: WNL Edema: No Integumentary: Yes: WNL Neurological: Yes: WNL, Alert, Oriented ...Motor Strength: WNL Psychiatric: Yes: WNL Labs: CBC, BMP 06/17/20 08:30 06/17/20 08:30 Assessment/Plan GI: ?metastatic disease of the liver; ? lung as primary focus constipation uncontrolled DM HTN cigarettes exertional fatigue "dark urine"; hyperbilirubinuria/emia hyponatremia; hypokalemia; hypomagnesemia; anemia Rec: COVID not detected. Abdominal MRI results pending. TNI < 0.02 x 3; BNP 224. repeat labs, and replete electrolytes if necessary. LDL cholesterol 64; TSH WNL; elevated HGBA1c (6.8). Plan for ECHO (once COVID status known) for LVEF, wall motion and thickness; valve status. CXR: no acute pathology; CTA noted pulmonary nodules. Glucose control IV fluids; f/u BUN/Cr, electrolytes, daily weight, Is and Os. F/u abdominal, GI/ evaluation; f/u CT abdomen Started lisinopril 2.5 mg daily (HTN; DM). F/u Na and K; replete as necessary; f/u with nephrology.
--- NOTE | 2020-06-17 18:38 | CONS ---
PULMONARY CONSULTATION DATE OF CONSULTATION: 06/17/2020 REFERRING PHYSICIAN: Patient is a 69-year-old male, past medical history of diabetes, maintained on Glucophage and insulin; hypertension, not on medication; chronic diverticulitis; distended gallbladder; longstanding history of tobacco use, positive 1 pack per day for many years, still smoking; admitted to [facility] on June 13 with complaint of substernal abdominal pain for approximately 1 week's duration. Patient apparently initially felt moderate substernal pain, burning up to his throat, and he stated the pain lasted a few hours. He also complained of constipation and dark urine. Patient apparently, according to daughter, was extremely fatigued with minimal exertion for the past couple of weeks and feels that he just wants to lie down and sleep. He denies any chronic cough or hemoptysis. Does have a weight loss. Denies any night sweats. On admission, he underwent an abdominal ultrasound, revealed multiple extensive hepatic lesions suggestive of metastatic disease. He subsequently underwent an abdominal MRI which reveals a large left lower lobe infrahilar mass as well as mediastinal adenopathy and innumerable masses in the liver consistent with extensive metastatic disease. PAST MEDICAL HISTORY: Again includes hypertension, diabetes. SOCIAL HISTORY: Born in [place], moved to the [place] years ago. No occupational exposures. Positive tobacco use. CURRENT MEDICATIONS: Include Prinivil, heparin subcutaneous, normal saline, NovoLog, and Protonix. REVIEW OF SYSTEMS: No orthopnea. No PND. No shortness of breath. No chest pain. Positive weight loss. Positive weakness. Positive abdominal discomfort. PHYSICAL EXAMINATION: General: Patient is a thin male, awake, alert, in no acute distress. Vital Signs: He is afebrile. Blood pressure 130/62, respiratory rate is 18, O2 saturation is 95% on room air. HEENT: Normocephalic, atraumatic. Neck: Supple. Heart: Regular. S1, S2. Chest: Clear. Abdomen: Soft. Bowel sounds positive. Extremities: No cyanosis or edema. LABORATORY DATA: Sodium is 121. BUN 6.9, creatinine 0.6. Alkaline phosphatase of 178, ALT is 153, AST is 101. WBC is 7.1, hemoglobin 12.2, hematocrit 34. MRI of the abdomen as noted. IMPRESSION: 1. Likely lung cancer with extensive liver metastases. 2. Left lower lobe mass with mediastinal adenopathy. 3. Hypertension. 4. Diabetes. 5. Hyponatremia, possible secretion of inappropriate antidiuretic hormone. 6. Tobacco abuse. 7. Abdominal pain. 8. Abnormal liver function tests. PLAN: Supplemental O2 as needed. IR evaluation for tissue diagnosis. Analgesics. Monitor electrolytes, hemoglobin and hematocrit. Trend LFTs. Monitor sodium. Urine electrolytes. Consider renal evaluation. MINDA HU M.D. [id number]
[2020-06-17] MEDS: SODIUM CHLORIDE 1,000 ML IV SCH (20:08)
[2020-06-17] MEDS ORDERED: MELATONIN 5 MG TABLETS PO ONE (20:45)
[2020-06-17] MEDS ORDERED: INSULIN (NOVOLOG) ASPART 100 UNITS/ML 10ML VIAL ONE (21:00)
[2020-06-17] MEDS: DOCUSATE SODIUM 100 MG CAPSULE (FP) PO SCH (21:27)
--- NOTE | 2020-06-17 22:06 | PN ---
Progress Note, Physician - Current Medication List Current Medications: Active Medications Docusate Sodium (Colace -) 300 mg PO HS [facility] Last Admin: 06/17/20 21:27 Dose: 300 mg Documented by: Heparin Sodium (Porcine) (Heparin -) 5,000 unit SQ BID [facility] Last Admin: 06/17/20 21:28 Dose: 5,000 unit Documented by: Insulin Aspart (Novolog Vial Sliding Scale -) 1 vial SQ [facility]; Protocol Last Admin: 06/17/20 21:30 Dose: 2 units Documented by: Lisinopril (Prinivil) 2.5 mg PO DAILY [facility] Last Admin: 06/17/20 09:58 Dose: 2.5 mg Documented by: Pantoprazole Sodium (Protonix Iv) 40 mg IVPUSH BID [facility] Last Admin: 06/17/20 21:29 Dose: 40 mg Documented by: - Objective Vital Signs: Vital Signs Temperature 98.0 F 06/17/20 15:03 Pulse Rate 66 06/17/20 15:03 Respiratory Rate 18 06/17/20 15:03 Blood Pressure 126/66 06/17/20 15:03 O2 Sat by Pulse Oximetry (%) 96 06/17/20 15:03 Labs: CBC, BMP 06/17/20 08:30 06/17/20 08:30
[2020-06-18] MEDS: INSULIN SLIDING SCALE (NOVOLOG) 1 VIAL SQ SCH ×4 (06:05→21:39)
[2020-06-18 08:04] LABS: BASO % 0.6 % (0-2.0); EOS % 0.4 % (0-4.5); HEMATOCRIT 31.8 % (35.4-49); HEMOGLOBIN 11.3 GM/dL (11.7-16.9); LYMPH % 11.5 % (8-40); MCHC 35.4 g/dl (32.0-35.9); MEAN CELL VOLUME 93.2 fl (80-96); MONO % 9.8 % (3.8-10.2); NEUT % 77.7 % (42.8-82.8); PLATELET COUNT 157 K/MM3 (134-434); RBC 3.41 M/mm3 (4.00-5.60); RDW 12.8 % (11.9-15.9); WHITE BLOOD COUNT 6.6 K/mm3 (4.0-10.0)
[2020-06-18 08:39] LABS: ALBUMIN 3.1 g/dl (3.4-5.0); BILIRUBIN,TOTAL 2.9 mg/dL (0.2-1); BLOOD UREA NITROGEN 7.4 mg/dL (7-18); CALCIUM 8.1 mg/dL (8.5-10.1); CREATININE 0.5 mg/dL (0.55-1.3); POTASSIUM 3.2 mmol/L (3.5-5.1); TOT PROT 5.6 g/dl (6.4-8.2)
[2020-06-18] MEDS ORDERED: MAG HYDROX/AL HYDROX/SIMETH 30 ML UNIT-DOSE CUP PO PRN (08:43)
[2020-06-18] MEDS ORDERED: ACETAMINOPHEN 325 MG TABLET (FP) PO PRN (09:30)
[2020-06-18] MEDS: LISINOPRIL 5 MG TABLET PO SCH (10:00)
[2020-06-18] MEDS: HEPARIN NA (PORCINE) 5,000 UNITS/ML 1ML VIAL SQ SCH ×2 (10:00→21:35)
[2020-06-18] MEDS ORDERED: oxyCODONE HCL 10 MG SUSTAINED ACTING TABLET PO SCH (10:00)
[2020-06-18] MEDS: oxyCODONE HCL 5 MG TABLET PO PRN ×2 (10:00→21:34)
[2020-06-18] MEDS: PANTOPRAZOLE SODIUM 40 MG VIAL IVPUSH SCH ×2 (10:00→21:36)
--- NOTE | 2020-06-18 10:05 | PN ---
Progress Note, Physician History of Present Illness: Mr. Gonzales is a 69 yr old man (b. [place]) with PMHx DM (on glucophage and insulin), current and long-term cigarettes (1/2-1 ppd for many years), HTN (?not on medications), chronic diverticulitis and distended gallblader (2013 CT), ? cholesterol levels, now brought to ER due to 1 week of substernal and abdominal pain that began about one week ago. Pt initially felt moderate central sternal burning pain up to his throat that began at rest and lasted for hours; for the last few days, it has been felt in his abdomen. He has had constipation for several days, as well as "dark urine"; decreased appetite, and weight loss, for several weeks. Pt's daughter says he has been extremely fatigued on minimal exertion for weeks, and "he just wants to lay down and sleep, like he is in slow-motion when talking, moving thinking". His appetite has diminished, and he has lost weight over the past few months, though he is unsure how much. He has been doing very little exercise for months. Denies family hx CAD/CVA. Denies alcohol. - Current Medication List Current Medications: Active Medications Acetaminophen (Tylenol -) 650 mg PO Q6H PRN PRN Reason: PAIN LEVEL 1-5 Al Hydroxide/Mg Hydroxide (Mylanta Oral Suspension -) 30 ml PO Q6H PRN PRN Reason: DYSPEPSIA Docusate Sodium (Colace -) 300 mg PO [facility] Last Admin: 06/17/20 21:27 Dose: 300 mg Documented by: Heparin Sodium (Porcine) (Heparin -) 5,000 unit SQ BID [facility] Last Admin: 06/18/20 10:00 Dose: 5,000 unit Documented by: Insulin Aspart (Novolog Vial Sliding Scale -) 1 vial SQ ACHS [facility]; Protocol Last Admin: 06/18/20 06:05 Dose: Not Given Documented by: Lisinopril (Prinivil) 2.5 mg PO DAILY [facility] Last Admin: 06/18/20 10:00 Dose: 2.5 mg Documented by: Melatonin (Melatonin) 10 mg PO [facility] Oxycodone HCl (Roxicodone -) 5 mg PO Q6H PRN PRN Reason: PAIN LEVEL 6-10 Last Admin: 06/18/20 10:00 Dose: 5 mg Documented by: Pantoprazole Sodium (Protonix Iv) 40 mg IVPUSH BID [facility] Last Admin: 06/18/20 10:00 Dose: 40 mg Documented by: - Objective Vital Signs: Vital Signs Temperature 98.8 F 06/18/20 05:59 Pulse Rate 69 06/18/20 05:59 Respiratory Rate 18 06/18/20 05:59 Blood Pressure 139/70 06/18/20 05:59 O2 Sat by Pulse Oximetry (%) 97 06/18/20 05:59 Eyes: Yes: WNL, Conjunctiva Clear, EOM Intact HENT: Yes: WNL, Atraumatic, Normocephalic Neck: Yes: WNL, Supple, Trachea Midline Cardiovascular: Yes: WNL, Regular Rate and Rhythm Respiratory: Yes: WNL, Regular, CTA Bilaterally Gastrointestinal: Yes: WNL, Normal Bowel Sounds Genitourinary: Yes: WNL Musculoskeletal: Yes: WNL Extremities: Yes: WNL Edema: No Integumentary: Yes: WNL Neurological: Yes: WNL, Alert, Oriented ...Motor Strength: WNL Psychiatric: Yes: WNL Labs: CBC, BMP 06/18/20 07:05 06/18/20 07:05 Assessment/Plan GI: ?metastatic disease of the liver; ? lung as primary focus constipation uncontrolled DM HTN cigarettes exertional fatigue "dark urine"; hyperbilirubinuria/emia hyponatremia; hypokalemia; hypomagnesemia; anemia Rec: COVID not detected. TNI < 0.02 x 3; BNP 224. repeat labs, and replete electrolytes if necessary. LDL cholesterol 64; TSH WNL; elevated HGBA1c (6.8). Plan for ECHO (once COVID status known) for LVEF, wall motion and thickness; valve status. CXR: no acute pathology; CTA noted pulmonary nodules. Glucose control IV fluids; f/u BUN/Cr, electrolytes, daily weight, Is and Os. F/u abdominal, GI/ evaluation; f/u CT abdomen Started lisinopril 2.5 mg daily (HTN; DM). F/u Na and K; replete as necessary; f/u with nephrology. Pain Control Liver Bx in AM
--- NOTE | 2020-06-18 11:08 | PN ---
Progress Note (short form) - Note Progress Note: PULMONARY Still some abdominal discomfort. No shortness of breath, cough. Vital Signs Period Temp Pulse Resp BP Sys/Hopkins Pulse Ox Last 24 Hr 98.0 F-98.9 F 65-69 18-18 126-139/66-82 96-98 Gen: NAD at rest Heart: RRR Lung: decreased breath sounds at the bases Abd: soft, hepatomegaly Ext: no edema CBC, BMP 06/18/20 07:05 06/18/20 07:05 Active Medications Acetaminophen (Tylenol -) 650 mg PO Q6H PRN PRN Reason: PAIN LEVEL 1-5 Al Hydroxide/Mg Hydroxide (Mylanta Oral Suspension -) 30 ml PO Q6H PRN PRN Reason: DYSPEPSIA Docusate Sodium (Colace -) 300 mg PO HS [facility] Last Admin: 06/17/20 21:27 Dose: 300 mg Documented by: Heparin Sodium (Porcine) (Heparin -) 5,000 unit SQ BID [facility] Last Admin: 06/18/20 10:00 Dose: 5,000 unit Documented by: Insulin Aspart (Novolog Vial Sliding Scale -) 1 vial SQ [facility]; Protocol Last Admin: 06/18/20 06:05 Dose: Not Given Documented by: Lisinopril (Prinivil) 2.5 mg PO DAILY [facility] Last Admin: 06/18/20 10:00 Dose: 2.5 mg Documented by: Melatonin (Melatonin) 10 mg PO [facility] Oxycodone HCl (Roxicodone -) 5 mg PO Q6H PRN PRN Reason: PAIN LEVEL 6-10 Last Admin: 06/18/20 10:00 Dose: 5 mg Documented by: Pantoprazole Sodium (Protonix Iv) 40 mg IVPUSH BID [facility] Last Admin: 06/18/20 10:00 Dose: 40 mg Documented by: A/P Metastatic Cancer unknown primary Lung Mass Hyponatremia HTN DM Smoker Anemia - for liver biopsy - replete lytes - consider renal eval - DVT prophylaxis
[2020-06-18] MEDS ORDERED: INSULIN (NOVOLOG) ASPART 100 UNITS/ML 10ML VIAL ONE (16:52)
[2020-06-18] MEDS: MELATONIN 5 MG TABLETS PO SCH (21:33)
[2020-06-18] MEDS: DOCUSATE SODIUM 100 MG CAPSULE (FP) PO SCH (21:34)
[2020-06-18] MEDS ORDERED: POTASSIUM CHLORIDE TABS 20 MEQ TABLET.ER (FP) PO ONE (21:51)
--- NOTE | 2020-06-18 21:59 | PN ---
Progress Note, Physician History of Present Illness: Pain is better controlled on oxycodone - Current Medication List Current Medications: Active Medications Acetaminophen (Tylenol -) 650 mg PO Q6H PRN PRN Reason: PAIN LEVEL 1-5 Al Hydroxide/Mg Hydroxide (Mylanta Oral Suspension -) 30 ml PO Q6H PRN PRN Reason: DYSPEPSIA Last Admin: 06/18/20 21:33 Dose: 30 ml Documented by: Docusate Sodium (Colace -) 300 mg PO [facility] Last Admin: 06/18/20 21:34 Dose: 300 mg Documented by: Heparin Sodium (Porcine) (Heparin -) 5,000 unit SQ BID [facility] Last Admin: 06/18/20 21:35 Dose: 5,000 unit Documented by: Insulin Aspart (Novolog Vial Sliding Scale -) 1 vial SQ [facility]; Protocol Last Admin: 06/18/20 21:39 Dose: Not Given Documented by: Lisinopril (Prinivil) 2.5 mg PO DAILY [facility] Last Admin: 06/18/20 10:00 Dose: 2.5 mg Documented by: Melatonin (Melatonin) 10 mg PO [facility] Last Admin: 06/18/20 21:33 Dose: 10 mg Documented by: Oxycodone HCl (Roxicodone -) 5 mg PO Q6H PRN PRN Reason: PAIN LEVEL 6-10 Last Admin: 06/18/20 21:34 Dose: 5 mg Documented by: Pantoprazole Sodium (Protonix Iv) 40 mg IVPUSH BID [facility] Last Admin: 06/18/20 21:36 Dose: 40 mg Documented by: Potassium Chloride (K-Dur -) 40 meq PO ONCE ONE Stop: 06/18/20 21:52 - Objective Vital Signs: Vital Signs Temperature 98.7 F 06/18/20 19:08 Pulse Rate 70 06/18/20 19:08 Respiratory Rate 18 06/18/20 10:00 Blood Pressure 117/63 06/18/20 19:08 O2 Sat by Pulse Oximetry (%) 98 06/18/20 19:08 Cardiovascular: Yes: WNL, Regular Rate and Rhythm Respiratory: Yes: Diminished Gastrointestinal: Yes: WNL, Normal Bowel Sounds, Soft Labs: CBC, BMP 06/18/20 07:05 06/18/20 07:05 Problem List - Problems (1) Liver masses Assessment/Plan: Liver bx ordered w/ IR Probable metastatic dz from lung primary Await bx report Code(s): R16.0 - HEPATOMEGALY, NOT ELSEWHERE CLASSIFIED (2) Abdominal pain Code(s): R10.9 - UNSPECIFIED ABDOMINAL PAIN Qualifiers: Abdominal location: generalized Qualified Code(s): R10.84 - Generalized abdominal pain (3) Diabetes Assessment/Plan: Cont sliding scale w/ coverage Code(s): E11.9 - TYPE 2 DIABETES MELLITUS WITHOUT COMPLICATIONS (4) HTN (hypertension) Assessment/Plan: Cont lisinopril BP stable Code(s): I10 - ESSENTIAL (PRIMARY) HYPERTENSION (5) Lung mass Code(s): R91.8 - OTHER NONSPECIFIC ABNORMAL FINDING OF LUNG FIELD
[2020-06-19] MEDS: INSULIN SLIDING SCALE (NOVOLOG) 1 VIAL SQ SCH ×4 (06:21→22:16)
[2020-06-19] MEDS: oxyCODONE HCL 5 MG TABLET PO PRN ×3 (07:21→22:21)
[2020-06-19 09:16] LABS: BASO % 0.4 % (0-2.0); EOS % 0.2 % (0-4.5); HEMATOCRIT 34.9 % (35.4-49); HEMOGLOBIN 12.4 GM/dL (11.7-16.9); LYMPH % 10.3 % (8-40); MCH 33.8 pg (25.7-33.7); MCHC 35.5 g/dl (32.0-35.9); MEAN CELL VOLUME 95.3 fl (80-96); MEAN PLT VOLUME 9.8 fl (7.5-11.1); MONO % 8.5 % (3.8-10.2); NEUT % 80.6 % (42.8-82.8); PLATELET COUNT 174 K/MM3 (134-434); RBC 3.67 M/mm3 (4.00-5.60); RDW 13.1 % (11.9-15.9); WHITE BLOOD COUNT 6.8 K/mm3 (4.0-10.0)
--- NOTE | 2020-06-19 09:16 | PN ---
Progress Note, Physician History of Present Illness: Mr. Gonzales is a 69 yr old man (b. [place]) with PMHx DM (on glucophage and insulin), current and long-term cigarettes (1/2-1 ppd for many years), HTN (?not on medications), chronic diverticulitis and distended gallblader (2013 CT), ? cholesterol levels, now brought to ER due to 1 week of substernal and abdominal pain that began about one week ago. Pt initially felt moderate central sternal burning pain up to his throat that began at rest and lasted for hours; for the last few days, it has been felt in his abdomen. He has had constipation for several days, as well as "dark urine"; decreased appetite, and weight loss, for several weeks. Pt's daughter says he has been extremely fatigued on minimal exertion for weeks, and "he just wants to lay down and sleep, like he is in slow-motion when talking, moving thinking". His appetite has diminished, and he has lost weight over the past few months, though he is unsure how much. He has been doing very little exercise for months. Denies family hx CAD/CVA. Denies alcohol. - Current Medication List Current Medications: Active Medications Acetaminophen (Tylenol -) 650 mg PO Q6H PRN PRN Reason: PAIN LEVEL 1-5 Al Hydroxide/Mg Hydroxide (Mylanta Oral Suspension -) 30 ml PO Q6H PRN PRN Reason: DYSPEPSIA Last Admin: 06/18/20 21:33 Dose: 30 ml Documented by: Docusate Sodium (Colace -) 300 mg PO [facility] Last Admin: 06/18/20 21:34 Dose: 300 mg Documented by: Heparin Sodium (Porcine) (Heparin -) 5,000 unit SQ BID [facility] Last Admin: 06/18/20 21:35 Dose: 5,000 unit Documented by: Insulin Aspart (Novolog Vial Sliding Scale -) 1 vial SQ ACHS [facility]; Protocol Last Admin: 06/19/20 06:21 Dose: Not Given Documented by: Lisinopril (Prinivil) 2.5 mg PO DAILY [facility] Last Admin: 06/18/20 10:00 Dose: 2.5 mg Documented by: Melatonin (Melatonin) 10 mg PO [facility] Last Admin: 06/18/20 21:33 Dose: 10 mg Documented by: Oxycodone HCl (Roxicodone -) 5 mg PO Q6H PRN PRN Reason: PAIN LEVEL 6-10 Last Admin: 06/19/20 07:21 Dose: 5 mg Documented by: Pantoprazole Sodium (Protonix Iv) 40 mg IVPUSH BID [facility] Last Admin: 06/18/20 21:36 Dose: 40 mg Documented by: - Objective Vital Signs: Vital Signs Temperature 98.2 F 06/19/20 05:19 Pulse Rate 72 06/19/20 05:19 Respiratory Rate 18 06/19/20 05:19 Blood Pressure 140/75 06/19/20 05:19 O2 Sat by Pulse Oximetry (%) 95 06/19/20 08:33 Eyes: Yes: WNL, Conjunctiva Clear, EOM Intact HENT: Yes: WNL, Atraumatic, Normocephalic Neck: Yes: WNL, Supple, Trachea Midline Cardiovascular: Yes: WNL, Regular Rate and Rhythm Respiratory: Yes: WNL, Regular, CTA Bilaterally Gastrointestinal: Yes: WNL, Normal Bowel Sounds Genitourinary: Yes: WNL Musculoskeletal: Yes: WNL Extremities: Yes: WNL Edema: No Integumentary: Yes: WNL Neurological: Yes: WNL, Alert, Oriented ...Motor Strength: WNL Psychiatric: Yes: WNL Assessment/Plan GI: ?metastatic disease of the liver; ? lung as primary focus constipation uncontrolled DM HTN cigarettes exertional fatigue "dark urine"; hyperbilirubinuria/emia hyponatremia; hypokalemia; hypomagnesemia; anemia Rec: COVID not detected. TNI < 0.02 x 3; BNP 224. repeat labs, and replete electrolytes if necessary. LDL cholesterol 64; TSH WNL; elevated HGBA1c (6.8). Plan for ECHO (once COVID status known) for LVEF, wall motion and thickness; valve status. CXR: no acute pathology; CTA noted pulmonary nodules. Glucose control IV fluids; f/u BUN/Cr, electrolytes, daily weight, Is and Os. F/u abdominal, GI/ evaluation; f/u CT abdomen Started lisinopril 2.5 mg daily (HTN; DM). F/u Na and K; replete as necessary; f/u with nephrology. Pain Control Liver Bx in AM
[2020-06-19] MEDS: PANTOPRAZOLE SODIUM 40 MG VIAL IVPUSH SCH ×2 (09:20→22:17)
[2020-06-19] MEDS: LISINOPRIL 5 MG TABLET PO SCH (09:21)
[2020-06-19] MEDS: HEPARIN NA (PORCINE) 5,000 UNITS/ML 1ML VIAL SQ SCH ×2 (09:22→22:18)
[2020-06-19 09:40] LABS: ALBUMIN 3.4 g/dl (3.4-5.0); BILIRUBIN,TOTAL 3.4 mg/dL (0.2-1); BLOOD UREA NITROGEN 10.5 mg/dL (7-18); CALCIUM 8.7 mg/dL (8.5-10.1); CREATININE 0.6 mg/dL (0.55-1.3); POTASSIUM 4.2 mmol/L (3.5-5.1); TOT PROT 6.2 g/dl (6.4-8.2)
[2020-06-19] MEDS: POLYETHYLENE GLYCOL 3350 119 GM BTL PO SCH (10:29)
[2020-06-19 12:08] LABS: INR 1.12 (0.83-1.09); PROTHROMBIN TIME (PATIENT) 13.2 SEC (9.7-13.0)
--- NOTE | 2020-06-19 12:59 | PN ---
Progress Note (short form) - Note Progress Note: PULMONARY For liver biopsy today. Still some abdominal discomfort. No shortness of breath, cough. Vital Signs Period Temp Pulse Resp BP Sys/Hopkins Pulse Ox Last 24 Hr 98.2 F-99.0 F 66-72 18-18 117-140/56-75 95-98 Gen: NAD at rest Heart: RRR Lung: decreased breath sounds at the bases Abd: soft, hepatomegaly Ext: no edema CBC, BMP 06/19/20 08:00 06/19/20 08:00 Active Medications Acetaminophen (Tylenol -) 650 mg PO Q6H PRN PRN Reason: PAIN LEVEL 1-5 Al Hydroxide/Mg Hydroxide (Mylanta Oral Suspension -) 30 ml PO Q6H PRN PRN Reason: DYSPEPSIA Last Admin: 06/18/20 21:33 Dose: 30 ml Documented by: Docusate Sodium (Colace -) 300 mg PO [facility] Last Admin: 06/18/20 21:34 Dose: 300 mg Documented by: Heparin Sodium (Porcine) (Heparin -) 5,000 unit SQ BID [facility] Last Admin: 06/19/20 09:22 Dose: Not Given Documented by: Insulin Aspart (Novolog Vial Sliding Scale -) 1 vial SQ [facility]; Protocol Last Admin: 06/19/20 10:42 Dose: Not Given Documented by: Lisinopril (Prinivil) 2.5 mg PO DAILY [facility] Last Admin: 06/19/20 09:21 Dose: 2.5 mg Documented by: Melatonin (Melatonin) 10 mg PO [facility] Last Admin: 06/18/20 21:33 Dose: 10 mg Documented by: Oxycodone HCl (Roxicodone -) 5 mg PO Q6H PRN PRN Reason: PAIN LEVEL 6-10 Last Admin: 06/19/20 12:34 Dose: 5 mg Documented by: Pantoprazole Sodium (Protonix Iv) 40 mg IVPUSH BID [facility] Last Admin: 06/19/20 09:20 Dose: 40 mg Documented by: Polyethylene Glycol (Miralax (For Daily Use) -) 17 gm PO DAILY [facility] Last Admin: 06/19/20 10:29 Dose: 17 gm Documented by: A/P Metastatic Cancer unknown primary Lung Mass Hyponatremia HTN DM Smoker Anemia - for liver biopsy - replete lytes - consider renal eval - DVT prophylaxis
[2020-06-19] MEDS ORDERED: INSULIN (NOVOLOG) ASPART 100 UNITS/ML 10ML VIAL ONE (16:06)
--- NOTE | 2020-06-19 16:25 | CONSULT ---
Consult Consult Specialty:: Nephrology Reason for Consultation:: hyponatremia - History of Present Illness Chief Complaint: abdominal and chest pain History of Present Illness: Pt is a 69 year old male with pmhx of dm, htn, hld, diverticulitis and an active smoker who presents with chest pain. I was called to evaluate him for hyponatremia. He denies history of hyponatremia. He is awake and alert. he denies headache or dizziness. He complains of fatigue. He was found to have a mass on chest ct. He denies excess water intake. - History Source History Provided By: Patient, Medical Record - Past Medical History Cardio/Vascular: Yes: HTN Endocrine: Yes: Diabetes Mellitus - Smoking History Smoking history: Current every day smoker Have you smoked in the past 12 months: Yes Aproximately how many cigarettes per day: 10 Home Medications - Allergies Allergies/Adverse Reactions: Allergies Allergy/AdvReac Type Severity Reaction Status Date / Time No Known Allergies Allergy Verified 06/13/20 15:44 - Home Medications Home Medications: Ambulatory Orders Glimepiride 4 mg PO 02/03/13 Glimepiride 4 mg PO DAILY #7 tablet 02/03/13 Family Medical History Family History: Denies Review of Systems - Review of Systems Constitutional: reports: Loss of Appetite, Malaise Eyes: reports: No Symptoms HENT: reports: No Symptoms Neck: reports: No Symptoms Cardiovascular: reports: No Symptoms Respiratory: reports: No Symptoms Gastrointestinal: reports: No Symptoms Genitourinary: reports: No Symptoms Musculoskeletal: reports: No Symptoms Integumentary: reports: No Symptoms Neurological: reports: No Symptoms Endocrine: reports: No Symptoms Hematology/Lymphatic: reports: No Symptoms Psychiatric: reports: No Symptoms Physical Exam Vital Signs: Vital Signs Temperature 97.8 F 06/19/20 15:00 Pulse Rate 62 06/19/20 15:00 Respiratory Rate 18 06/19/20 15:00 Blood Pressure 148/43 L 06/19/20 15:00 O2 Sat by Pulse Oximetry (%) 98 06/19/20 15:00 Constitutional: Yes: Calm Eyes: Yes: Conjunctiva Clear HENT: Yes: Atraumatic Neck: Yes: Supple Cardiovascular: Yes: S1, S2 Respiratory: Yes: CTA Bilaterally Gastrointestinal: Yes: Normal Bowel Sounds, Soft Renal/: Yes: WNL Musculoskeletal: Yes: WNL Edema: No Neurological: Yes: Oriented Psychiatric: Yes: Oriented Labs: CBC, BMP 06/19/20 08:00 06/19/20 08:00 Imaging - Results Cat Scan: Report Reviewed Problem List - Problems (1) Abdominal pain Code(s): R10.9 - UNSPECIFIED ABDOMINAL PAIN Qualifiers: Abdominal location: generalized Qualified Code(s): R10.84 - Generalized abdominal pain (2) Diabetes Code(s): E11.9 - TYPE 2 DIABETES MELLITUS WITHOUT COMPLICATIONS (3) Hyponatremia Code(s): E87.1 - HYPO-OSMOLALITY AND HYPONATREMIA Assessment/Plan Current Medications Generic Name Dose Route Start Last Admin Trade Name Freq PRN Reason Stop Dose Admin Acetaminophen 650 mg 06/18/20 09:30 Tylenol - PO Q6H PRN PAIN LEVEL 1-5 Al Hydroxide/Mg Hydroxide 30 ml 06/18/20 08:43 06/18/20 21:33 Mylanta Oral Suspension - PO 30 ml Q6H PRN Administration DYSPEPSIA Docusate Sodium 300 mg 06/17/20 22:00 06/18/20 21:34 Colace - PO 300 mg HS [facility] Administration Heparin Sodium (Porcine) 5,000 unit 06/14/20 10:00 06/19/20 09:22 Heparin - SQ Not Given BID [facility] Insulin Aspart 1 vial 06/14/20 07:00 06/19/20 16:08 Novolog Vial Sliding Scale - SQ 2 units ACHS [facility] Administration Protocol Lisinopril 2.5 mg 06/13/20 17:45 06/19/20 09:21 Prinivil PO 2.5 mg DAILY [facility] Administration Melatonin 10 mg 06/18/20 22:00 06/18/20 21:33 Melatonin PO 10 mg HS [facility] Administration Oxycodone HCl 5 mg 06/18/20 09:20 06/19/20 12:34 Roxicodone - PO 5 mg Q6H PRN Administration PAIN LEVEL 6-10 Pantoprazole Sodium 40 mg 06/14/20 22:00 06/19/20 09:20 Protonix Iv IVPUSH 40 mg BID [facility] Administration Polyethylene Glycol 17 gm 06/19/20 10:00 06/19/20 10:29 Miralax (For Daily Use) - PO 17 gm DAILY [facility] Administration Laboratory Tests 06/17/20 06/17/20 06/19/20 13:00 13:00 08:00 Sodium 123 L Urine Osmolality 602 Ur Random Sodium 80 Impression 1. hyponatremia 2. lung mass 3. htn 4. dm 5. chest pain 6. active smoker 7. anemia Plan - hyponatremia likely secondary to siadh - start fluid restriction - start salt tabs - repeat labs in am - oncology workup in progress - follow up biopsy report
[2020-06-19] MEDS: SODIUM CHLORIDE 1 GM TABLET PO SCH ×2 (17:14→22:20)
--- NOTE | 2020-06-19 19:49 | PN ---
Progress Note, Physician History of Present Illness: no complaints - Current Medication List Current Medications: Active Medications Acetaminophen (Tylenol -) 650 mg PO Q6H PRN PRN Reason: PAIN LEVEL 1-5 Al Hydroxide/Mg Hydroxide (Mylanta Oral Suspension -) 30 ml PO Q6H PRN PRN Reason: DYSPEPSIA Last Admin: 06/18/20 21:33 Dose: 30 ml Documented by: Docusate Sodium (Colace -) 300 mg PO [facility] Last Admin: 06/18/20 21:34 Dose: 300 mg Documented by: Heparin Sodium (Porcine) (Heparin -) 5,000 unit SQ BID [facility] Last Admin: 06/19/20 09:22 Dose: Not Given Documented by: Insulin Aspart (Novolog Vial Sliding Scale -) [address] [facility]; Protocol Last Admin: 06/19/20 16:08 Dose: 2 units Documented by: Lisinopril (Prinivil) 2.5 mg PO DAILY [facility] Last Admin: 06/19/20 09:21 Dose: 2.5 mg Documented by: Melatonin (Melatonin) 10 mg PO [facility] Last Admin: 06/18/20 21:33 Dose: 10 mg Documented by: Oxycodone HCl (Roxicodone -) 5 mg PO Q6H PRN PRN Reason: PAIN LEVEL 6-10 Last Admin: 06/19/20 12:34 Dose: 5 mg Documented by: Pantoprazole Sodium (Protonix Iv) 40 mg IVPUSH BID [facility] Last Admin: 06/19/20 09:20 Dose: 40 mg Documented by: Polyethylene Glycol (Miralax (For Daily Use) -) 17 gm PO DAILY [facility] 234 [facility]S [facility] Last Admin: 06/19/20 10:29 Dose: 17 gm Documented by: Sodium Chloride (Sodium Chloride Tablet -) 1 gm PO BID [facility] Last Admin: 06/19/20 17:14 Dose: 1 gm Documented by: - Objective Vital Signs: Vital Signs Temperature 97.8 F 06/19/20 15:00 Pulse Rate 62 06/19/20 15:00 Respiratory Rate 18 06/19/20 15:00 Blood Pressure 148/43 L 06/19/20 15:00 O2 Sat by Pulse Oximetry (%) 98 06/19/20 15:00 Constitutional: Yes: No Distress HENT: Yes: Atraumatic Neck: Yes: Supple Cardiovascular: Yes: Regular Rate and Rhythm Respiratory: Yes: Rhonchi Gastrointestinal: Yes: Normal Bowel Sounds Extremities: Yes: WNL Neurological: Yes: Alert, Oriented Labs: CBC, BMP 06/19/20 08:00 06/19/20 08:00 INR, PTT INR 1.12 (0.83-1.09) H 06/19/20 11:00 Problem List - Problems (1) Abdominal pain Assessment/Plan: resolved Code(s): R10.9 - UNSPECIFIED ABDOMINAL PAIN Qualifiers: Abdominal location: generalized Qualified Code(s): R10.84 - Generalized abdominal pain (2) Liver masses Assessment/Plan: CT ABDOMEN REVIEWED Code(s): R16.0 - HEPATOMEGALY, NOT ELSEWHERE CLASSIFIED (3) Transaminitis Assessment/Plan: monitor Code(s): R74.0 - NONSPEC ELEV OF LEVELS OF TRANSAMNS & LACTIC ACID DEHYDRGNSE (4) HTN (hypertension) Assessment/Plan: on meds monitor Code(s): I10 - ESSENTIAL (PRIMARY) HYPERTENSION (5) Diabetes Assessment/Plan: on insulin/bgms Code(s): E11.9 - TYPE 2 DIABETES MELLITUS WITHOUT COMPLICATIONS (6) Lung mass Assessment/Plan: oncology/pulmonary consult Code(s): R91.8 - OTHER NONSPECIFIC ABNORMAL FINDING OF LUNG FIELD Assessment/Plan [facility]OVERING DR FABIAN WINTER
[2020-06-19] MEDS: DOCUSATE SODIUM 100 MG CAPSULE (FP) PO SCH (22:20)
[2020-06-19] MEDS: MELATONIN 5 MG TABLETS PO SCH (22:20)
[2020-06-20] MEDS: INSULIN SLIDING SCALE (NOVOLOG) 1 VIAL SQ SCH ×4 (07:00→21:51)
[2020-06-20 08:28] LABS: ALBUMIN 3.2 g/dl (3.4-5.0); BILIRUBIN,TOTAL 3.1 mg/dL (0.2-1); BLOOD UREA NITROGEN 10.7 mg/dL (7-18); CALCIUM 8.6 mg/dL (8.5-10.1); CREATININE 0.5 mg/dL (0.55-1.3); TOT PROT 5.7 g/dl (6.4-8.2)
[2020-06-20] MEDS: oxyCODONE HCL 5 MG TABLET PO PRN ×2 (08:55→21:53)
[2020-06-20] MEDS: HEPARIN NA (PORCINE) 5,000 UNITS/ML 1ML VIAL SQ SCH ×2 (09:15→21:52)
--- NOTE | 2020-06-20 13:20 | PN ---
Progress Note, Physician History of Present Illness: Pt seen and examined at bedside. He is awake and alert. He denies shortness of breath. - Current Medication List Current Medications: Active Medications Acetaminophen (Tylenol -) 650 mg PO Q6H PRN PRN Reason: PAIN LEVEL 1-5 Al Hydroxide/Mg Hydroxide (Mylanta Oral Suspension -) 30 ml PO Q6H PRN PRN Reason: DYSPEPSIA Last Admin: 06/18/20 21:33 Dose: 30 ml Documented by: Docusate Sodium (Colace -) 300 mg PO [facility] Last Admin: 06/19/20 22:20 Dose: 300 mg Documented by: Heparin Sodium (Porcine) (Heparin -) 5,000 unit SQ BID [facility] Last Admin: 06/20/20 09:15 Dose: Not Given Documented by: Insulin Aspart (Novolog Vial Sliding Scale -) 1 vial SQ [facility]; Protocol Last Admin: 06/20/20 07:00 Dose: Not Given Documented by: Lisinopril (Prinivil) 2.5 mg PO DAILY [facility] Last Admin: 06/19/20 09:21 Dose: 2.5 mg Documented by: Melatonin (Melatonin) 10 mg PO HS [facility] Last Admin: 06/19/20 22:20 Dose: 10 mg Documented by: Oxycodone HCl (Roxicodone -) 5 mg PO Q6H PRN PRN Reason: PAIN LEVEL 6-10 Last Admin: 06/20/20 08:55 Dose: 5 mg Documented by: Pantoprazole Sodium (Protonix Iv) 40 mg IVPUSH BID [facility] Last Admin: 06/19/20 22:17 Dose: 40 mg Documented by: Polyethylene Glycol (Miralax (For Daily Use) -) 17 gm PO DAILY [facility] Last Admin: 06/19/20 10:29 Dose: 17 gm Documented by: Sodium Chloride (Sodium Chloride Tablet -) 1 gm PO BID [facility] Last Admin: 06/19/20 22:20 Dose: 1 gm Documented by: - Objective Vital Signs: Vital Signs Temperature 98.7 F 06/20/20 05:00 Pulse Rate 57 L 06/20/20 12:20 Respiratory Rate 15 06/20/20 12:20 Blood Pressure 145/66 06/20/20 12:20 O2 Sat by Pulse Oximetry (%) 100 06/20/20 12:20 Constitutional: Yes: Calm HENT: Yes: Atraumatic Cardiovascular: Yes: S1, S2 Respiratory: Yes: CTA Bilaterally Gastrointestinal: Yes: Soft Genitourinary: Yes: WNL Musculoskeletal: Yes: WNL Edema: No Neurological: Yes: Oriented Psychiatric: Yes: Oriented Labs: CBC, BMP 06/19/20 08:00 06/20/20 07:00 INR, PTT INR 1.12 (0.83-1.09) H 06/19/20 11:00 Problem List - Problems (1) Abdominal pain Code(s): R10.9 - UNSPECIFIED ABDOMINAL PAIN Qualifiers: Abdominal location: generalized Qualified Code(s): R10.84 - Generalized abd ominal pain (2) Diabetes Code(s): E11.9 - TYPE 2 DIABETES MELLITUS WITHOUT COMPLICATIONS (3) Hyponatremia Code(s): E87.1 - HYPO-OSMOLALITY AND HYPONATREMIA Assessment/Plan Current Medications Generic Name Dose Route Start Last Admin Trade Name Freq PRN Reason Stop Dose Admin Acetaminophen 650 mg 06/18/20 09:30 Tylenol - PO Q6H PRN PAIN LEVEL 1-5 Al Hydroxide/Mg Hydroxide 30 ml 06/18/20 08:43 06/18/20 21:33 Mylanta Oral Suspension - PO 30 ml Q6H PRN Administration DYSPEPSIA Docusate Sodium 300 mg 06/17/20 22:00 06/19/20 22:20 Colace - PO 300 mg HS [facility] Administration Heparin Sodium (Porcine) 5,000 unit 06/14/20 10:00 06/20/20 09:15 Heparin - SQ Not Given BID [facility] Insulin Aspart 1 vial 06/14/20 07:00 06/20/20 07:00 Novolog Vial Sliding Scale - SQ Not Given ACHS [facility] Protocol Lisinopril 2.5 mg 06/13/20 17:45 06/19/20 09:21 Prinivil PO 2.5 mg DAILY [facility] Administration Melatonin 10 mg 06/18/20 22:00 06/19/20 22:20 Melatonin PO 10 mg HS [facility] Administration Oxycodone HCl 5 mg 06/18/20 09:20 06/20/20 08:55 Roxicodone - PO 5 mg Q6H PRN Administration PAIN LEVEL 6-10 Pantoprazole Sodium 40 mg 06/14/20 22:00 06/19/20 22:17 Protonix Iv IVPUSH 40 mg BID [facility] Administration Polyethylene Glycol 17 gm 06/19/20 10:00 06/19/20 10:29 Miralax (For Daily Use) - PO 17 gm DAILY [facility] Administration Sodium Chloride 1 gm 06/19/20 16:25 06/19/20 22:20 Sodium Chloride Tablet - PO 1 gm BID [facility] Administration Impression 1. hyponatremia 2. lung mass 3. htn 4. dm 5. chest pain 6. active smoker 7. anemia Plan - sodium is improving - cont salt tabs - cont free water restriction - pt getting liver biopsy, follow up results - repeat labs in am - oncology workup in progress
[2020-06-20] MEDS: POLYETHYLENE GLYCOL 3350 119 GM BTL PO SCH (14:08)
[2020-06-20] MEDS: LISINOPRIL 5 MG TABLET PO SCH (14:08)
[2020-06-20] MEDS: PANTOPRAZOLE SODIUM 40 MG VIAL IVPUSH SCH ×2 (14:09→21:53)
[2020-06-20] MEDS: SODIUM CHLORIDE 1 GM TABLET PO SCH ×2 (14:09→21:51)
--- NOTE | 2020-06-20 15:55 | PN ---
Progress Note, Physician Chief Complaint: PT A&Ox3; ambulatory; had liver biopsy today; mild achy pain throughout abdomen; c/o bitter taste and "acid" in mouth when he tries to eat. Says repeatedly he wants to go home tomorrow ("they have done all the tests"). History of Present Illness: Mr. Gonzales is a 69 yr old man (b. [place]) with PMHx DM (on glucophage and insulin), current and long-term cigarettes (1/2-1 ppd for many years), HTN (?not on medications), chronic diverticulitis and distended gallblader (2013 CT), ? cholesterol levels, now brought to ER due to 1 week of substernal and abdominal pain that began about one week ago. Pt initially felt moderate central sternal burning pain up to his throat that began at rest and lasted for hours; for the last few days, it has been felt in his abdomen. He has had constipation for several days, as well as "dark urine"; decreased appetite, and weight loss, for several weeks. Pt's daughter says he has been extremely fatigued on minimal exertion for weeks, and "he just wants to lay down and sleep, like he is in slow-motion when talking, moving thinking". His appetite has diminished, and he has lost weight over the past few months, though he is unsure how much. He has been doing very little exercise for months. Denies family hx CAD/CVA. Denies alcohol. - Current Medication List Current Medications: Active Medications Acetaminophen (Tylenol -) 650 mg PO Q6H PRN PRN Reason: PAIN LEVEL 1-5 Al Hydroxide/Mg Hydroxide (Mylanta Oral Suspension -) 30 ml PO Q6H PRN PRN Reason: DYSPEPSIA Last Admin: 06/18/20 21:33 Dose: 30 ml Documented by: Docusate Sodium (Colace -) 300 mg PO HS [facility] Last Admin: 06/19/20 22:20 Dose: 300 mg Documented by: Heparin Sodium (Porcine) (Heparin -) 5,000 unit SQ BID [facility] Last Admin: 06/20/20 09:15 Dose: Not Given Documented by: Insulin Aspart (Novolog Vial Sliding Scale -) 1 vial SQ ACHS [facility]; Protocol Last Admin: 06/20/20 11:30 Dose: Not Given Documented by: Lisinopril (Prinivil) 2.5 mg PO DAILY [facility] Last Admin: 06/20/20 14:08 Dose: 2.5 mg Documented by: Melatonin (Melatonin) 10 mg PO HS [facility] Last Admin: 06/19/20 22:20 Dose: 10 mg Documented by: Oxycodone HCl (Roxicodone -) 5 mg PO Q6H PRN PRN Reason: PAIN LEVEL 6-10 Last Admin: 06/20/20 08:55 Dose: 5 mg Documented by: Pantoprazole Sodium (Protonix Iv) 40 mg IVPUSH BID [facility] Last Admin: 06/20/20 14:09 Dose: 40 mg Documented by: Polyethylene Glycol (Miralax (For Daily Use) -) 17 gm PO DAILY [facility] Last Admin: 06/20/20 14:08 Dose: 17 gm Documented by: Sodium Chloride (Sodium Chloride Tablet -) 1 gm PO BID [facility] Last Admin: 06/20/20 14:09 Dose: 1 gm Documented by: - Objective Vital Signs: Vital Signs Temperature 98.8 F 06/20/20 14:40 Pulse Rate 64 06/20/20 14:40 Respiratory Rate 18 06/20/20 14:40 Blood Pressure 148/73 06/20/20 14:40 O2 Sat by Pulse Oximetry (%) 98 06/20/20 14:40 Constitutional: Yes: Calm Eyes: Yes: WNL HENT: Yes: WNL Neck: Yes: WNL Cardiovascular: Yes: S1, S2 Respiratory: Yes: Regular Gastrointestinal: Yes: Tenderness (mild, diffuse abdomen) ...Rectal Exam: Yes: Deferred Genitourinary: No: Anuria Breast(s): Yes: WNL Musculoskeletal: Yes: Muscle Weakness Extremities: Yes: Cool Edema: No Peripheral Pulses WNL: Yes Integumentary: Yes: Bruising (liver biopsy site; small) Wound/Incision: Yes: Dressing Dry and Intact Neurological: Yes: WNL Psychiatric: Yes: Alert, Oriented Labs: CBC, BMP 06/19/20 08:00 06/20/20 07:00 INR, PTT INR 1.12 (0.83-1.09) H 06/19/20 11:00 - ....Imaging Chest X-ray: Image Reviewed EKG: Image Reviewed Assessment/Plan ?metastatic disease of the liver; ? lung as primary focus elevated LFTs constipation uncontrolled DM HTN cigarettes exertional fatigue "dark urine"; hyperbilirubinuria/emia hyponatremia; hypokalemia; hypomagnesemia; anemia Rec: COVID not detected. Abdominal MRI results noted. Liver biopsy results pending. TNI < 0.02 x 3; BNP 224. ECHO: normal LVEF; abnormal diastolic compliance; no pericardial effusion. LDL cholesterol 64; TSH WNL; elevated HGBA1c (6.8). CXR: no acute pathology; CTA noted pulmonary nodules. Glucose control IV fluids; f/u BUN/Cr, electrolytes, daily weight, Is and Os. F/u abdominal, GI/ evaluation; f/u CT abdomen Started lisinopril 2.5 mg daily (HTN; DM). F/u Na and K; replete as necessary; f/u with nephrology.
--- NOTE | 2020-06-20 21:44 | PN ---
Progress Note (short form) - Note Progress Note: No CP or SOB. Still with some abdominal discomfort. No acute events overnight. Intake & Output 06/17/20 06/18/20 06/19/20 06/20/20 23:59 23:59 23:59 23:59 Intake Total 10 20 400 520 Output Total 1200 Balance 10 -1180 400 520 Last Vital Signs Temp Pulse Resp BP Pulse Ox 98.5 F 66 18 136/75 98 06/20/20 18:47 06/20/20 18:47 06/20/20 14:40 06/20/20 18:47 06/20/20 19:40 Active Medications Acetaminophen (Tylenol -) 650 mg PO Q6H PRN PRN Reason: PAIN LEVEL 1-5 Al Hydroxide/Mg Hydroxide (Mylanta Oral Suspension -) 30 ml PO Q6H PRN PRN Reason: DYSPEPSIA Last Admin: 06/18/20 21:33 Dose: 30 ml Documented by: Docusate Sodium (Colace -) 300 mg PO [facility] Last Admin: 06/19/20 22:20 Dose: 300 mg Documented by: Heparin Sodium (Porcine) (Heparin -) 5,000 unit SQ BID [facility] Last Admin: 06/20/20 09:15 Dose: Not Given Documented by: Insulin Aspart (Novolog Vial Sliding Scale -) 1 vial SQ [facility]; Protocol Last Admin: 06/20/20 16:41 Dose: 2 units Documented by: Lisinopril (Prinivil) 2.5 mg PO DAILY [facility] Last Admin: 06/20/20 14:08 Dose: 2.5 mg Documented by: Melatonin (Melatonin) 10 mg PO [facility] Last Admin: 06/19/20 22:20 Dose: 10 mg Documented by: Oxycodone HCl (Roxicodone -) 5 mg PO Q6H PRN PRN Reason: PAIN LEVEL 6-10 Last Admin: 06/20/20 08:55 Dose: 5 mg Documented by: Pantoprazole Sodium (Protonix Iv) 40 mg IVPUSH BID [facility] Last Admin: 06/20/20 14:09 Dose: 40 mg Documented by: Polyethylene Glycol (Miralax (For Daily Use) -) 17 gm PO DAILY [facility] Last Admin: 06/20/20 14:08 Dose: 17 gm Documented by: Sodium Chloride (Sodium Chloride Tablet -) 1 gm PO BID [facility] Last Admin: 06/20/20 14:09 Dose: 1 gm Documented by: Gen: NAD at rest Heart: RRR Lung: decreased breath sounds at the bases Abd: soft, hepatomegaly Ext: no edema Laboratory Results - last 24 hr 06/19/20 06/20/20 06/20/20 22:14 06:29 07:00 Sodium 125 L Potassium 4.0 Chloride 91 L Carbon Dioxide 25 Anion Gap 9 BUN 10.7 Creatinine 0.5 L Est GFR (CKD-EPI)AfAm 126.36 Est GFR (CKD-EPI)NonAf 109.03 POC Glucometer 167 128 Random Glucose 117 H Calcium 8.6 Total Bilirubin 3.1 H AST 94 H ALT 143 H Alkaline Phosphatase 181 H Total Protein 5.7 L Albumin 3.2 L 06/20/20 16:40 Sodium Potassium Chloride Carbon Dioxide Anion Gap BUN Creatinine Est GFR (CKD-EPI)AfAm Est GFR (CKD-EPI)NonAf POC Glucometer 159 Random Glucose Calcium Total Bilirubin AST ALT Alkaline Phosphatase Total Protein Albumin A/P Metastatic Cancer unknown primary Lung Mass Hyponatremia HTN DM Smoker Anemia - Follow biopsy results - DVT prophylaxis - O2 as needed - No smoking Dr Harvey
[2020-06-20] MEDS: MELATONIN 5 MG TABLETS PO SCH (21:51)
[2020-06-20] MEDS: DOCUSATE SODIUM 100 MG CAPSULE (FP) PO SCH (21:52)
--- NOTE | 2020-06-20 22:28 | PN ---
Progress Note, Physician - Current Medication List Current Medications: Active Medications Acetaminophen (Tylenol -) 650 mg PO Q6H PRN PRN Reason: PAIN LEVEL 1-5 Al Hydroxide/Mg Hydroxide (Mylanta Oral Suspension -) 30 ml PO Q6H PRN PRN Reason: DYSPEPSIA Last Admin: 06/18/20 21:33 Dose: 30 ml Documented by: Docusate Sodium (Colace -) 300 mg PO HS [facility] Last Admin: 06/20/20 21:52 Dose: 300 mg Documented by: Heparin Sodium (Porcine) (Heparin -) 5,000 unit SQ BID [facility] Last Admin: 06/20/20 21:52 Dose: 5,000 unit Documented by: Insulin Aspart (Novolog Vial Sliding Scale -) 1 vial SQ [facility]; Protocol Last Admin: 06/20/20 21:51 Dose: Not Given Documented by: Lisinopril (Prinivil) 2.5 mg PO DAILY [facility] Last Admin: 06/20/20 14:08 Dose: 2.5 mg Documented by: Melatonin (Melatonin) 10 mg PO [facility] Last Admin: 06/20/20 21:51 Dose: 10 mg Documented by: Oxycodone HCl (Roxicodone -) 5 mg PO Q6H PRN PRN Reason: PAIN LEVEL 6-10 Last Admin: 06/20/20 21:53 Dose: 5 mg Documented by: Pantoprazole Sodium (Protonix Iv) 40 mg IVPUSH BID [facility] Last Admin: 06/20/20 21:53 Dose: 40 mg Documented by: Polyethylene Glycol (Miralax (For Daily Use) -) 17 gm PO DAILY [facility] Last Admin: 06/20/20 14:08 Dose: 17 gm Documented by: Sodium Chloride (Sodium Chloride Tablet -) 1 gm PO BID [facility] Last Admin: 06/20/20 21:51 Dose: 1 gm Documented by: - Objective Vital Signs: Vital Signs Temperature 98.5 F 06/20/20 18:47 Pulse Rate 66 06/20/20 18:47 Respiratory Rate 18 06/20/20 14:40 Blood Pressure 136/75 06/20/20 18:47 O2 Sat by Pulse Oximetry (%) 98 06/20/20 19:40 Labs: CBC, BMP 06/19/20 08:00 06/20/20 07:00 INR, PTT INR 1.12 (0.83-1.09) H 06/19/20 11:00 Problem List - Problems (1) Liver masses Code(s): R16.0 - HEPATOMEGALY, NOT ELSEWHERE CLASSIFIED (2) Abdominal pain Code(s): R10.9 - UNSPECIFIED ABDOMINAL PAIN Qualifiers: Abdominal location: generalized Qualified Code(s): R10.84 - Generalized abdominal pain (3) Diabetes Code(s): E11.9 - TYPE 2 DIABETES MELLITUS WITHOUT COMPLICATIONS (4) HTN (hypertension) Code(s): I10 - ESSENTIAL (PRIMARY) HYPERTENSION (5) Lung mass Code(s): R91.8 - OTHER NONSPECIFIC ABNORMAL FINDING OF LUNG FIELD
[2020-06-21] MEDS: INSULIN SLIDING SCALE (NOVOLOG) 1 VIAL SQ SCH ×2 (06:23→11:43)
--- NOTE | 2020-06-21 07:26 | PN ---
Progress Note, Physician History of Present Illness: pulmonary alert,comfortable,-sob,tolerated liver bx yesterday - Current Medication List Current Medications: Active Medications Acetaminophen (Tylenol -) 650 mg PO Q6H PRN PRN Reason: PAIN LEVEL 1-5 Al Hydroxide/Mg Hydroxide (Mylanta Oral Suspension -) 30 ml PO Q6H PRN PRN Reason: DYSPEPSIA Last Admin: 06/18/20 21:33 Dose: 30 ml Documented by: Docusate Sodium (Colace -) 300 mg PO [facility] Last Admin: 06/20/20 21:52 Dose: 300 mg Documented by: Heparin Sodium (Porcine) (Heparin -) 5,000 unit SQ BID [facility] Last Admin: 06/20/20 21:52 Dose: 5,000 unit Documented by: Insulin Aspart (Novolog Vial Sliding Scale -) 1 vial SQ ACHS [facility]; Protocol Last Admin: 06/21/20 06:23 Dose: Not Given Documented by: Lisinopril (Prinivil) 2.5 mg PO DAILY [facility] Last Admin: 06/20/20 14:08 Dose: 2.5 mg Documented by: Melatonin (Melatonin) 10 mg PO [facility] Last Admin: 06/20/20 21:51 Dose: 10 mg Documented by: Oxycodone HCl (Roxicodone -) 5 mg PO Q6H PRN PRN Reason: PAIN LEVEL 6-10 Last Admin: 06/20/20 21:53 Dose: 5 mg Documented by: Pantoprazole Sodium (Protonix Iv) 40 mg IVPUSH BID [facility] Last Admin: 06/20/20 21:53 Dose: 40 mg Documented by: Polyethylene Glycol (Miralax (For Daily Use) -) 17 gm PO DAILY [facility] Last Admin: 06/20/20 14:08 Dose: 17 gm Documented by: Sodium Chloride (Sodium Chloride Tablet -) 1 gm PO BID [facility] Last Admin: 06/20/20 21:51 Dose: 1 gm Documented by: - Objective Vital Signs: Vital Signs Temperature 98.6 F 06/21/20 06:21 Pulse Rate 65 06/21/20 06:21 Respiratory Rate 18 06/21/20 06:21 Blood Pressure 134/70 06/21/20 06:21 O2 Sat by Pulse Oximetry (%) 98 06/21/20 06:21 Constitutional: Yes: Calm, Thin Eyes: Yes: WNL HENT: Yes: WNL Neck: Yes: WNL Cardiovascular: Yes: Regular Rate and Rhythm, S1, S2 Respiratory: Yes: CTA Bilaterally Gastrointestinal: Yes: Normal Bowel Sounds, Soft Extremities: Yes: WNL Edema: No Labs: CBC, BMP Problem List - Problems (1) Lung mass Code(s): R91.8 - OTHER NONSPECIFIC ABNORMAL FINDING OF LUNG FIELD (2) Abdominal pain Code(s): R10.9 - UNSPECIFIED ABDOMINAL PAIN Qualifiers: Abdominal location: generalized Qualified Code(s): R10.84 - Generalized abdominal pain (3) Diabetes Code(s): E11.9 - TYPE 2 DIABETES MELLITUS WITHOUT COMPLICATIONS (4) HTN (hypertension) Code(s): I10 - ESSENTIAL (PRIMARY) HYPERTENSION (5) Liver masses Code(s): R16.0 - HEPATOMEGALY, NOT ELSEWHERE CLASSIFIED (6) Hyponatremia Code(s): E87.1 - HYPO-OSMOLALITY AND HYPONATREMIA Assessment/Plan A/P Metastatic Cancer unknown primary Lung Mass Hyponatremia HTN DM Smoker Anemia - replete lytes - consider renal eval - DVT prophylaxis - check path
[2020-06-21] MEDS ORDERED: PT OWN MED DRAWER 7, Y5N ONE (09:02)
[2020-06-21 09:06] LABS: ALBUMIN 3.2 g/dl (3.4-5.0); BLOOD UREA NITROGEN 12.2 mg/dL (7-18); CALCIUM 8.5 mg/dL (8.5-10.1); CREATININE 0.5 mg/dL (0.55-1.3); POTASSIUM 4.1 mmol/L (3.5-5.1); TOT PROT 5.9 g/dl (6.4-8.2)
[2020-06-21] MEDS: PANTOPRAZOLE SODIUM 40 MG VIAL IVPUSH SCH (09:13)
[2020-06-21] MEDS: SODIUM CHLORIDE 1 GM TABLET PO SCH (09:14)
[2020-06-21] MEDS: LISINOPRIL 5 MG TABLET PO SCH (09:14)
[2020-06-21] MEDS: oxyCODONE HCL 5 MG TABLET PO PRN (09:14)
[2020-06-21] MEDS: POLYETHYLENE GLYCOL 3350 119 GM BTL PO SCH (09:23)
[2020-06-21 09:34] VITALS: TEMP 98.1
--- NOTE | 2020-06-21 10:31 | PN ---
Progress Note, Physician History of Present Illness: Mr. Gonzales is a 69 yr old man (b. [place]) with PMHx DM (on glucophage and insulin), current and long-term cigarettes (1/2-1 ppd for many years), HTN (?not on medications), chronic diverticulitis and distended gallblader (2013 CT), ? cholesterol levels, now brought to ER due to 1 week of substernal and abdominal pain that began about one week ago. Pt initially felt moderate central sternal burning pain up to his throat that began at rest and lasted for hours; for the last few days, it has been felt in his abdomen. He has had constipation for several days, as well as "dark urine"; decreased appetite, and weight loss, for several weeks. Pt's daughter says he has been extremely fatigued on minimal exertion for weeks, and "he just wants to lay down and sleep, like he is in slow-motion when talking, moving thinking". His appetite has diminished, and he has lost weight over the past few months, though he is unsure how much. He has been doing very little exercise for months. Denies family hx CAD/CVA. Denies alcohol. - Current Medication List Current Medications: Active Medications Acetaminophen (Tylenol -) 650 mg PO Q6H PRN PRN Reason: PAIN LEVEL 1-5 Al Hydroxide/Mg Hydroxide (Mylanta Oral Suspension -) 30 ml PO Q6H PRN PRN Reason: DYSPEPSIA Last Admin: 06/18/20 21:33 Dose: 30 ml Documented by: Docusate Sodium (Colace -) 300 mg PO [facility] Last Admin: 06/20/20 21:52 Dose: 300 mg Documented by: Insulin Aspart (Novolog Vial Sliding Scale -) 1 vial SQ [facility]; Protocol Last Admin: 06/21/20 06:23 Dose: Not Given Documented by: Lisinopril (Prinivil) 2.5 mg PO DAILY [facility] Last Admin: 06/21/20 09:14 Dose: 2.5 mg Documented by: Melatonin (Melatonin) 10 mg PO [facility] Last Admin: 06/20/20 21:51 Dose: 10 mg Documented by: Pantoprazole Sodium (Protonix Iv) 40 mg IVPUSH BID [facility] Last Admin: 06/21/20 09:13 Dose: 40 mg Documented by: Polyethylene Glycol (Miralax (For Daily Use) -) 17 gm PO DAILY [facility] Last Admin: 06/21/20 09:23 Dose: 17 gm Documented by: Sodium Chloride (Sodium Chloride Tablet -) 1 gm PO BID [facility] Last Admin: 06/21/20 09:14 Dose: 1 gm Documented by: - Objective Vital Signs: Vital Signs Temperature 98.1 F 06/21/20 09:33 Pulse Rate 84 06/21/20 09:33 Respiratory Rate 19 06/21/20 09:33 Blood Pressure 119/67 06/21/20 09:33 O2 Sat by Pulse Oximetry (%) 94 L 06/21/20 09:33 Eyes: Yes: WNL, Conjunctiva Clear, EOM Intact HENT: Yes: WNL, Atraumatic, Normocephalic Neck: Yes: WNL, Supple, Trachea Midline Cardiovascular: Yes: WNL, Regular Rate and Rhythm Respiratory: Yes: WNL, Regular, CTA Bilaterally Gastrointestinal: Yes: WNL, Normal Bowel Sounds Genitourinary: Yes: WNL Musculoskeletal: Yes: WNL Extremities: Yes: WNL Edema: No Integumentary: Yes: WNL Neurological: Yes: WNL, Alert, Oriented ...Motor Strength: WNL Psychiatric: Yes: WNL Labs: CBC, BMP 06/19/20 08:00 06/21/20 07:15 INR, PTT INR 1.12 (0.83-1.09) H 06/19/20 11:00 Assessment/Plan ?metastatic disease of the liver; ? lung as primary focus elevated LFTs constipation uncontrolled DM HTN cigarettes exertional fatigue "dark urine"; hyperbilirubinuria/emia hyponatremia; hypokalemia; hypomagnesemia; anemia Rec: COVID not detected. Abdominal MRI results noted. Liver biopsy results pending. TNI < 0.02 x 3; BNP 224. ECHO: normal LVEF; abnormal diastolic compliance; no pericardial effusion. LDL cholesterol 64; TSH WNL; elevated HGBA1c (6.8). CXR: no acute pathology; CTA noted pulmonary nodules. Glucose control IV fluids; f/u BUN/Cr, electrolytes, daily weight, Is and Os. F/u abdominal, GI/ evaluation; f/u CT abdomen Started lisinopril 2.5 mg daily (HTN; DM). F/u Na and K; replete as necessary; f/u with nephrology.
[2020-06-21] MEDS ORDERED: INSULIN (NOVOLOG) ASPART 100 UNITS/ML 10ML VIAL ONE (11:37)
--- NOTE | 2020-06-21 11:55 | PN ---
Progress Note, Physician History of Present Illness: Pt seen and examined at bedside. He is awake and alert. He denies shortness of breath. - Current Medication List Current Medications: Active Medications Acetaminophen (Tylenol -) 650 mg PO Q6H PRN PRN Reason: PAIN LEVEL 1-5 Al Hydroxide/Mg Hydroxide (Mylanta Oral Suspension -) 30 ml PO Q6H PRN PRN Reason: DYSPEPSIA Last Admin: 06/18/20 21:33 Dose: 30 ml Documented by: Docusate Sodium (Colace -) 300 mg PO [facility] Last Admin: 06/20/20 21:52 Dose: 300 mg Documented by: Insulin Aspart (Novolog Vial Sliding Scale -) 1 vial SQ [facility]; Protocol Last Admin: 06/21/20 11:43 Dose: 2 units Documented by: Lisinopril (Prinivil) 2.5 mg PO DAILY [facility] Last Admin: 06/21/20 09:14 Dose: 2.5 mg Documented by: Melatonin (Melatonin) 10 mg PO [facility] Last Admin: 06/20/20 21:51 Dose: 10 mg Documented by: Pantoprazole Sodium (Protonix Iv) 40 mg IVPUSH BID [facility] Last Admin: 06/21/20 09:13 Dose: 40 mg Documented by: Polyethylene Glycol (Miralax (For Daily Use) -) 17 gm PO DAILY [facility] Last Admin: 06/21/20 09:23 Dose: 17 gm Documented by: Sodium Chloride (Sodium Chloride Tablet -) 1 gm PO BID [facility] Last Admin: 06/21/20 09:14 Dose: 1 gm Documented by: - Objective Vital Signs: Vital Signs Temperature 98.1 F 06/21/20 09:33 Pulse Rate 84 06/21/20 09:33 Respiratory Rate 19 06/21/20 09:33 Blood Pressure 119/67 06/21/20 09:33 O2 Sat by Pulse Oximetry (%) 94 L 06/21/20 09:33 Constitutional: Yes: Calm Eyes: Yes: Conjunctiva Clear HENT: Yes: Atraumatic Neck: Yes: Supple Cardiovascular: Yes: S1, S2 Respiratory: Yes: CTA Bilaterally Gastrointestinal: Yes: Soft Genitourinary: Yes: WNL Musculoskeletal: Yes: WNL Edema: No Neurological: Yes: Oriented Psychiatric: Yes: Oriented Labs: CBC, BMP 06/19/20 08:00 06/21/20 07:15 INR, PTT INR 1.12 (0.83-1.09) H 06/19/20 11:00 Problem List - Problems (1) Abdominal pain Code(s): R10.9 - UNSPECIFIED ABDOMINAL PAIN Qualifiers: Abdominal location: generalized Qualified Code(s): R10.84 - Generalized abdominal pain (2) Diabetes Code(s): E11.9 - TYPE 2 DIABETES MELLITUS WITHOUT COMPLICATIONS (3) Hyponatremia Code(s): E87.1 - HYPO-OSMOLALITY AND HYPONATREMIA Assessment/Plan Current Medications Generic Name Dose Route Start Last Admin Trade Name Freq PRN Reason Stop Dose Admin Acetaminophen 650 mg 06/18/20 09:30 Tylenol - PO Q6H PRN PAIN LEVEL 1-5 Al Hydroxide/Mg Hydroxide 30 ml 06/18/20 08:43 06/18/20 21:33 Mylanta Oral Suspension - PO 30 ml Q6H PRN Administration DYSPEPSIA Docusate Sodium 300 mg 06/17/20 22:00 06/20/20 21:52 Colace - PO 300 mg HS [facility] Administration Insulin Aspart 1 vial 06/14/20 07:00 06/21/20 11:43 Novolog Vial Sliding Scale - SQ 2 units ACHS [facility] Administration Protocol Lisinopril 2.5 mg 06/13/20 17:45 06/21/20 09:14 Prinivil PO 2.5 mg DAILY [facility] Administration Melatonin 10 mg 06/18/20 22:00 06/20/20 21:51 Melatonin PO 10 mg HS [facility] Administration Pantoprazole Sodium 40 mg 06/14/20 22:00 06/21/20 09:13 Protonix Iv IVPUSH 40 mg BID [facility] Administration Polyethylene Glycol 17 gm 06/19/20 10:00 06/21/20 09:23 Miralax (For Daily Use) - PO 17 gm DAILY [facility] Administration Sodium Chloride 1 gm 06/19/20 16:25 06/21/20 09:14 Sodium Chloride Tablet - PO 1 gm BID [facility] Administration Impression 1. hyponatremia 2. lung mass 3. htn 4. dm 5. chest pain 6. active smoker 7. anemia Plan - sodium is improving - cont salt tabs - free water restriction - follow biopsy - will need outpt follow up - encourage po intake
[2020-06-21 13:50] VITALS: BP 123/68; PULSE 75
--- NOTE | 2020-06-22 14:50 | PATH ---
Surgical Pathology Report Patient Name: RICHARD MIR Med. Rec. #: [id number] /Age/Gender: 1950 (Age: 69) / M Account: [id number] Location: [address] [place] [address]/[facility] Taken: 06/20/2020 Received: 06/20/2020 Reported: 06/22/2020 Physicians: Zhou Chambers M.D. Specimen(s) Received LIVER TISSUE, ULTRASOUND GUIDED CORE BIOPSY Clinical History 69-year-old male with multiple lung and liver lesions Final Diagnosis LIVER TISSUE, ULTRASOUND GUIDED CORE BIOPSY: HIGH-GRADE NEUROENDOCRINE CARCINOMA, SMALL CELL CARCINOMA. SEE COMMENT. Comment: Histologic sections show sheets and aggregates of small to medium sized cells with scant cytoplasm, granular chromatin, nuclear molding, appreciable mitosis, and apoptosis. Immunohistochemical stains performed at [place], [place] ([id number]) and interpreted at [facility] show the tumor is positive for AE1/3 (dot like, patchy), TTF-1, synaptophysin, CD56, and chromogranin (focal); while negative for CK7, CK20, p40 and Napsin-A, Estimated proliferative marker, ki-67, is high and labels ~50% of tumor nuclei. Overall histomorphology and immunophenotype supports the diagnosis. Imaging findings of multiple lung and liver lesions are noted. Suggest clinical and radiologic correlation. Case seen in intradepartmental review with consensus on diagnosis. Findings discussed with Dr. Ochoa,06/22/20. Electronically Signed Lexy Pelletier M.D. Gross Description Received in formalin labeled "liver tissue," is a 1.5 x 0.5 x 0.1 cm aggregate hinds-brown, irregular to cylindrical portions of soft tissue. The formalin is filtered and the specimen is entirely submitted in one cassette. /06/20/2020 [facility]06/20/2020
== END 2020-06-21 15:15 | disposition home or self-care (01) | DRG 436 ==
LOC: JER 15:39 → JERBED 20:55 → J6S 06-14 21:41
PROVIDERS: ADMIT Internal Medicine; ATTEND Internal Medicine
PROC: 0FB03ZX Excision of Liver, Percutaneous Approach, Diagnostic (ICD-10-PCS; principal; 2020-06-20)
DX: C78.7 Secondary malignant neoplasm of liver and intrahepatic bile duct (principal); E87.1 Hypo-osmolality and hyponatremia; R10.9 Unspecified abdominal pain; R74.0 Nonspecific elevation of levels of transaminase and lactic acid dehydrogenase [LDH]; I10 Essential (primary) hypertension; R07.9 Chest pain, unspecified; F17.210 Nicotine dependence, cigarettes, uncomplicated; D64.9 Anemia, unspecified; E11.65 Type 2 diabetes mellitus with hyperglycemia; E87.6 Hypokalemia; E83.42 Hypomagnesemia; K59.00 Constipation, unspecified; R16.0 Hepatomegaly, not elsewhere classified; E80.6 Other disorders of bilirubin metabolism; C80.1 Malignant (primary) neoplasm, unspecified
CPT/HCPCS: 36415; 71046-TC-FY; 71250-TC; 74019-TC-FY; 74177-TC; 74181-TC; 76705-TC; 76942-TC; 80053; 80061; 81003; 82550; 82553; 82962; 83036; 83690; 83721; 83735; 83880; 83935; 84300; 84443; 84484; 85025; 85027; 85610; 87086; 88305-TC; 93005; 93010; 93306-TC; 99285-25; J0131; J1644; Q9967; U0003

== ENCOUNTER 2020-07-03 09:34 | Day surgery (SDC) | payer OTHER, BC ==
--- OUTSIDE RECORDS SUMMARY | 2020-06-29 07:16 | XMS ---
:1950 Author Organization [facility] Support Name Relationship Address Phone JAY MIR DAUGHTER [address] [place] [address] RE, RETIRED Unavailable Unavailable Unavailable RE Unavailable Unavailable Unavailable JAGDEEP MIR [address] [phone] [place] [address] JAGDEEP MIR Unavailable [address] [place] [address] Re-disclosure Warning The records that you are [...] is protected by Article 27-F of the [facility] Public Health law. If you continue you may haveaccess to information: Regarding HIV / AIDS; Provided by facilities licensed or operated by the [facility] Office of Mental Health; or Provided by the [facility] Office for People With Developmental Disabilities. If such information is present, then the following [facility] mandated warning applies: This information has been [...] law may result in a fine or fci sentence or both. A general authorization for the release of medical or other information is NOT sufficient authorization for further disclosure. Insurance Providers Payer name Policy type Policy ID Covered Covered green party's Policy P derek / Coverage green party ID relationship to Song Inf ormation type song MEDICARE [id number] SP [id number] 13 3 GHI CBP [id number] [place] [id number] 02 OUTPT 2 BC PPO [id number] [place] [id number] MEDICARE [id number] SP [id number] 13 3 Results ID Date Data Source [id number] 06/13/2020 10:23:00 PM EDT [facility] Name Value Range Interpretation Description Data Sup porting Code Source(s) Document(s ) SARS [facility] coronavirus 2 RNA This lab was ordered by [facility] and reported by [facility]. Procedure
[~2020-07-03 09:34] MED LIST: traMADol HCL 50 MG TABLET PO ONE
--- OUTSIDE RECORDS SUMMARY | 2020-07-03 09:40 | XMS ---
:1950 Author Organization [facility] Support Name Relationship Address Phone JAY MIR DAUGHTER [address] [facility] [place] [address] RE, RETIRED Unavailable Unavailable Unavailable RE Unavailable Unavailable Unavailable JAGDEEP MIR [address] [facility] [place] [address] JAGDEEP MIR Spouse [address] [facility] [place] [address] Re-disclosure Warning The records that you are [...] is protected by Article [address]-F of the [facility] Public Health law. If you continue you may haveaccess to information: Regarding HIV / AIDS; Provided by facilities licensed or operated by the [facility] Office of Mental Health; or Provided by the [facility] Office for People With Developmental Disabilities. If such information is present, then the following [facility] mandated warning applies: This information has been [...] law may result in a fine or prison sentence or both. A general authorization for the release of medical or other information is NOT sufficient authorization for further disclosure. Insurance Providers Payer name Policy type Policy ID Covered Covered alliance party's Policy P derek / Coverage alliance party ID relationship to Song Inf ormation type song MEDICARE [id number] SP [id number] 13 3 [place] [id number] [place] [id number] [id number] 2 BC P[place] [id number] [place] [id number] MEDICARE [id number] SP [id number] 13 3 Results ID Date Data Source [id number] 06/13/2020 10:23:00 PM EDT [facility] Name Value Range Interpretation Description Data Sup porting Code Source(s) Document(s ) SARS [facility] coronavirus 2 RNA This lab was ordered by [facility] and reported by [facility]. Procedure
[2020-07-03] MEDS ORDERED: DEXAMETHASONE SODIUM PHOSPHATE 10 MG in SODIUM CHLORIDE 50 ML IVPB ONE (10:00)
[2020-07-03] MEDS ORDERED: PALONOSETRON HCL 0.25 MG/5 ML VIAL IVPUSH ONE (10:00)
[2020-07-03] MEDS ORDERED: SODIUM CHLORIDE 1,000 ML IV SCH (10:00)
[2020-07-03] MEDS ORDERED: ATEZOLIZUMAB 1,200 MG in SODIUM CHLORIDE 250 ML IV ONE (10:30)
[2020-07-03 10:50] LABS: BASO % 0.1 % (0-2.0); HEMATOCRIT 38.1 % (35.4-49); HEMOGLOBIN 13.1 GM/dL (11.7-16.9); LYMPH % 2.7 % (8-40); MCH 33.3 pg (25.7-33.7); MCHC 34.5 g/dl (32.0-35.9); MEAN CELL VOLUME 96.7 fl (80-96); MEAN PLT VOLUME 10.5 fl (7.5-11.1); MONO % 5.4 % (3.8-10.2); NEUT % 91.8 % (42.8-82.8); PLATELET COUNT 163 K/MM3 (134-434); RBC 3.94 M/mm3 (4.00-5.60); RDW 15.8 % (11.9-15.9); WHITE BLOOD COUNT 12.7 K/mm3 (4.0-10.0)
[2020-07-03] MEDS ORDERED: SODIUM CHLORIDE IVPB ONE ×2 (11:00→13:00)
[2020-07-03] MEDS ORDERED: CARBOPLATIN IVPB ONE ×2 (11:00→13:00)
[2020-07-03 11:30] LABS: CALCIUM 9.6 mg/dL (8.5-10.1); POTASSIUM 3.4 mmol/L (3.5-5.1); TOT PROT 5.7 g/dl (6.4-8.2); URIC ACID 4.5 mg/dL (2.6-7.2)
[2020-07-03 11:33] LABS: BLOOD UREA NITROGEN 50.1 mg/dL (7-18)
[2020-07-03 11:40] LABS: BILIRUBIN,TOTAL 15.1 mg/dL (0.2-1)
[2020-07-03 11:47] LABS: ANISOCYTOSIS 0; MACROCYTOSIS 0; PLATELET ESTIMATE NORMAL
[2020-07-03] MEDS ORDERED: oxyCODONE HCL 5 MG TABLET PO ONE (12:37)
[2020-07-03 15:37] VITALS: BP 108/64; PULSE 95; TEMP 97.8
[2020-07-04 20:08] LABS: HEP B CORE AB, TOT Negative (Negative)
== END 2020-07-03 15:00 | disposition home or self-care (01) ==
LOC: JONCCHEMO 09:34
PROVIDERS: ATTEND Internal Medicine Hematology & Oncology
PROC: 3E0337Z Introduction of Electrolytic and Water Balance Substance into Peripheral Vein, Percutaneous Approach (ICD-10-PCS; principal; 2020-07-03)
DX: Z51.11 Encounter for antineoplastic chemotherapy (principal); C34.90 Malignant neoplasm of unspecified part of unspecified bronchus or lung; Z53.8 Procedure and treatment not carried out for other reasons
CPT/HCPCS: 36415; 80053; 83615; 84550; 85025; 86704; 86706; 86707; 86708; 86709; 86803; 87340; 96360; 96361